=== PATIENT | female | born 1950 | race Two or more races ===

== ENCOUNTER → 2017-07-07 | Outpatient (CLI) | payer OTHER, MEDICARE ==
--- NOTE | 2017-07-07 09:01 | REP ---
Clinical: Chronic knee pain. Technique: AP, lateral, bilateral oblique and sunrise views of the right knee. Findings: Advanced tricompartmental osteoarthritic degenerative changes are appreciated including subchondral sclerosis/heterogeneity, joint space narrowing, osteophyte formation and small calcified posterior loose bodies. No fracture dislocation. No effusion. Impression: Advanced tricompartmental osteoarthritic degenerative changes. Signed by Ismael Nava MD 07/07/2017 08:52 A
[2017-07-07 13:05] LABS: BASO # 0.1 10^3/uL (0.0-0.2); BASO % 1.1 % (0.0-1.0); EOS # 0.3 10^3/uL (0.0-0.50); EOS % 3.7 % (0.0-3.0); IMMATURE GRANULOCYTE % 0.4 % (0-0); LYMPH # 1.6 10^3/uL (1.5-4.5); LYMPH % 20.1 % (24.0-44.0); MEAN CORPUSCULAR HEMOGLOBIN 27.2 pg (27.0-33.0); MEAN CORPUSCULAR HGB CONC 30.6 g/dl (32.0-36.5); MEAN CORPUSCULAR VOLUME 88.9 fl (80.0-96.0); MONO % 12.4 % (0.0-5.0); NEUTROPHILS % 62.3 % (36.0-66.0); PLATELET COUNT, AUTOMATED 377 10^3/uL (150-450); RED CELL DISTRIBUTION WIDTH 14.5 % (11.5-14.5); WHITE BLOOD COUNT 7.9 10^3/uL (4.0-10.0)
[2017-07-07 13:27] LABS: ALBUMIN 3.7 GM/DL (3.2-5.2); ALBUMIN/GLOBULIN RATIO 1.16 (1.00-1.93); ALKALINE PHOSPHATASE 120 U/L (45-117); ALT/SGPT 14 U/L (12-78); ANION GAP 7 MEQ/L (8-16); AST/SGOT 12 U/L (7-37); BILIRUBIN,TOTAL 0.3 MG/DL (0.2-1.0); BLOOD UREA NITROGEN 21 MG/DL (7-18); CALCIUM LEVEL 9.2 MG/DL (8.8-10.2); CARBON DIOXIDE LEVEL 31 MEQ/L (21-32); CHLORIDE LEVEL 104 MEQ/L (98-107); CHOLESTEROL LEVEL 197 MG/DL (<200); CREATININE FOR GFR 0.78 MG/DL (0.55-1.02); FREE T4 0.83 NG/DL (0.76-1.46); GLOMERULAR FILTRATION RATE > 60.0 (>45); GLUCOSE, FASTING 98 MG/DL (80-110); POTASSIUM SERUM 4.7 MEQ/L (3.5-5.1); SODIUM LEVEL 142 MEQ/L (136-145); TOTAL PROTEIN 6.9 GM/DL (6.4-8.2); TRIGLYCERIDES LEVEL 121 MG/DL (<150)
== END ==
LOC: M ADAMS 07:43
PROVIDERS: ATTEND Family Medicine
DX: Z00.00 Encounter for general adult medical examination without abnormal findings (principal); M17.11 Unilateral primary osteoarthritis, right knee

== ENCOUNTER 2018-06-17 08:03 | Inpatient (IN) | payer MEDICARE, MEDICAID, OTHER ==
[2018-06-17 09:00] LABS: BASO % 0.2 % (0.0-1.0); EOS % 0.1 % (0.0-3.0); HEMATOCRIT 30.7 % (36.0-47.0); HEMOGLOBIN 9.6 g/dl (12.0-15.5); IMMATURE GRANULOCYTE % 0.5 % (0-3.0); LYMPH # 0.9 10^3/uL (1.5-4.5); MEAN CORPUSCULAR HEMOGLOBIN 25.3 pg (27.0-33.0); MEAN CORPUSCULAR HGB CONC 31.3 g/dl (32.0-36.5); MEAN CORPUSCULAR VOLUME 80.8 fl (80.0-96.0); MONO # 1.7 10^3/uL (0.0-0.8); MONO % 10.1 % (0.0-5.0); NEUTROPHILS # 14.4 10^3/uL (1.8-7.7); NEUTROPHILS % 84.1 % (36.0-66.0); PLATELET COUNT, AUTOMATED 479 10^3/uL (150-450); RED CELL DISTRIBUTION WIDTH 15.2 % (11.5-14.5); WHITE BLOOD COUNT 17.2 10^3/uL (4.0-10.0)
[2018-06-17 09:21] LABS: LACTIC ACID SEPSIS PROTOCOL 1.7 MMOL/L (0.4-2.0)
[2018-06-17 09:22] LABS: PROTHROMBIN TIME 15.4 SECONDS (12.1-14.4)
[2018-06-17 09:34] LABS: ALBUMIN 2.5 GM/DL (3.2-5.2); ALKALINE PHOSPHATASE 119 U/L (45-117); ALT/SGPT 18 U/L (12-78); ANION GAP 8 MEQ/L (8-16); AST/SGOT 26 U/L (7-37); BILIRUBIN,DIRECT 0.3 MG/DL (0.0-0.2); BILIRUBIN,TOTAL 0.5 MG/DL (0.2-1.0); BLOOD UREA NITROGEN 20 MG/DL (7-18); CALCIUM LEVEL 8.7 MG/DL (8.8-10.2); CARBON DIOXIDE LEVEL 32 MEQ/L (21-32); CHLORIDE LEVEL 99 MEQ/L (98-107); CREATININE FOR GFR 0.88 MG/DL (0.55-1.30); GLOMERULAR FILTRATION RATE > 60.0 (>45); GLUCOSE, FASTING 126 MG/DL (70-100); POTASSIUM SERUM 3.7 MEQ/L (3.5-5.1); SODIUM LEVEL 139 MEQ/L (136-145); TOTAL PROTEIN 6.7 GM/DL (6.4-8.2)
[2018-06-17 09:50] LABS: ERYTHROCYTE SEDIMENTATION RATE 108 mm/hr (0-30)
[2018-06-17] MEDS ORDERED: MECLIZINE 25 MG TABLET PO (11:00)
[2018-06-17] MEDS: VANCOMYCIN HCL 1,000 MG, VIAL MATE ADAPTER 1 EACH in D5W 250 ML IV (11:11)
[2018-06-17] MEDS: ATORVASTATIN 10 MG TAB PO (12:32)
[2018-06-17] MEDS: hydroCHLOROthiazide 12.5 MG CAPSULE PO (12:32)
[2018-06-17] MEDS: CEFTAROLINE FOSAMIL 600 MG in D5W MINI-BAG PLUS 50 ML IV ×2 (12:33→22:43)
[2018-06-17] MEDS: ENOXAPARIN 40 MG/0.4 ML SYRINGE (J1650) SC (12:33)
[2018-06-17] MEDS: PRIMIDONE 250 MG TAB PO (21:53)
[2018-06-17] MEDS: ACETAMINOPHEN 500 MG TAB PO (22:44)
[2018-06-18 05:58] LABS: BASO % 0.3 % (0.0-1.0); EOS # 0.1 10^3/uL (0.0-0.50); EOS % 1.1 % (0.0-3.0); HEMATOCRIT 30.2 % (36.0-47.0); HEMOGLOBIN 9.2 g/dl (12.0-15.5); IMMATURE GRANULOCYTE % 0.6 % (0-3.0); LYMPH # 1.4 10^3/uL (1.5-4.5); LYMPH % 12.2 % (24.0-44.0); MEAN CORPUSCULAR HGB CONC 30.5 g/dl (32.0-36.5); MEAN CORPUSCULAR VOLUME 82.1 fl (80.0-96.0); MONO # 1.2 10^3/uL (0.0-0.8); MONO % 10.5 % (0.0-5.0); NEUTROPHILS # 8.8 10^3/uL (1.8-7.7); NEUTROPHILS % 75.3 % (36.0-66.0); PLATELET COUNT, AUTOMATED 406 10^3/uL (150-450); RED BLOOD COUNT 3.68 10^6/uL (4.00-5.40); RED CELL DISTRIBUTION WIDTH 15.1 % (11.5-14.5); WHITE BLOOD COUNT 11.7 10^3/uL (4.0-10.0)
[2018-06-18 06:15] LABS: ANION GAP 6 MEQ/L (8-16); BLOOD UREA NITROGEN 21 MG/DL (7-18); CARBON DIOXIDE LEVEL 33 MEQ/L (21-32); CHLORIDE LEVEL 100 MEQ/L (98-107); CREATININE FOR GFR 0.95 MG/DL (0.55-1.30); GLOMERULAR FILTRATION RATE > 60.0 (>45); GLUCOSE, FASTING 98 MG/DL (70-100); SODIUM LEVEL 139 MEQ/L (136-145)
[2018-06-18] MEDS: PRIMIDONE 250 MG TAB PO ×2 (08:51→22:17)
[2018-06-18] MEDS: ATORVASTATIN 10 MG TAB PO (08:51)
[2018-06-18] MEDS: ENOXAPARIN 40 MG/0.4 ML SYRINGE (J1650) SC (08:52)
[2018-06-18] MEDS: hydroCHLOROthiazide 12.5 MG CAPSULE PO (08:52)
[2018-06-18] MEDS: SANTYL OINT 30GM TOP (09:00)
[2018-06-18] MEDS: DIAPER RELIEF PASTE (DESITIN) 60GM TOP (09:00)
[2018-06-18] MEDS: CEFTAROLINE FOSAMIL 600 MG in D5W MINI-BAG PLUS 50 ML IV ×2 (10:07→22:18)
[2018-06-18] MEDS: ACETAMINOPHEN 500 MG TAB PO ×3 (10:07→22:17)
[2018-06-18] MEDS ORDERED: ACETAMINOPHEN TAB 650MG DOSE (2X325MG) PO (10:15)
[2018-06-18] MEDS ORDERED: ONDANSETRON 4MG/2ML VIAL (J2405) IV (10:15)
[2018-06-18] MEDS: FLUBLOK(EGG FREE)(QUAD)INFLUENZA VACC 0.5ML SYRINGE (90682)18YRS&OLDER IM (12:35)
[2018-06-19 05:56] LABS: BASO # 0.1 10^3/uL (0.0-0.2); BASO % 0.7 % (0.0-1.0); EOS # 0.4 10^3/uL (0.0-0.50); HEMATOCRIT 30.7 % (36.0-47.0); HEMOGLOBIN 9.4 g/dl (12.0-15.5); IMMATURE GRANULOCYTE % 0.5 % (0-3.0); LYMPH # 0.9 10^3/uL (1.5-4.5); LYMPH % 10.5 % (24.0-44.0); MEAN CORPUSCULAR HEMOGLOBIN 24.9 pg (27.0-33.0); MEAN CORPUSCULAR HGB CONC 30.6 g/dl (32.0-36.5); MEAN CORPUSCULAR VOLUME 81.4 fl (80.0-96.0); MONO # 0.9 10^3/uL (0.0-0.8); MONO % 9.9 % (0.0-5.0); NEUTROPHILS # 6.5 10^3/uL (1.8-7.7); NEUTROPHILS % 74.4 % (36.0-66.0); PLATELET COUNT, AUTOMATED 441 10^3/uL (150-450); RED BLOOD COUNT 3.77 10^6/uL (4.00-5.40); RED CELL DISTRIBUTION WIDTH 15.2 % (11.5-14.5); WHITE BLOOD COUNT 8.7 10^3/uL (4.0-10.0)
[2018-06-19 05:58] LABS: RETIC HEMOGLOBIN EQUIVALENT 24.7 pg (24-36); RETICULOCYTE # 44.9 10^9/L (17-77); RETICULOCYTE % 1.2 % (0.5-1.5)
[2018-06-19 06:19] LABS: FERRITIN 53 NG/ML (8-252); IRON (FE) 18 UG/DL (50-170); PERCENT SATURATION 8.1 % (13.2-45.0); TOTAL IRON BINDING CAPACITY 222 UG/DL (250-450)
[2018-06-19 06:25] LABS: ANION GAP 7 MEQ/L (8-16); BLOOD UREA NITROGEN 22 MG/DL (7-18); CALCIUM LEVEL 8.4 MG/DL (8.8-10.2); CARBON DIOXIDE LEVEL 33 MEQ/L (21-32); CHLORIDE LEVEL 100 MEQ/L (98-107); CREATININE FOR GFR 0.89 MG/DL (0.55-1.30); GLOMERULAR FILTRATION RATE > 60.0 (>45); GLUCOSE, FASTING 94 MG/DL (70-100); POTASSIUM SERUM 2.9 MEQ/L (3.5-5.1); SODIUM LEVEL 140 MEQ/L (136-145)
[2018-06-19] MEDS: POTASSIUM CHLORIDE 10 MEQ SR TABLET PO ×4 (06:56→21:48)
[2018-06-19] MEDS: ATORVASTATIN 10 MG TAB PO (08:00)
[2018-06-19] MEDS: PRIMIDONE 250 MG TAB PO ×2 (08:00→20:25)
[2018-06-19] MEDS: ENOXAPARIN 40 MG/0.4 ML SYRINGE (J1650) SC (08:00)
[2018-06-19] MEDS: hydroCHLOROthiazide 12.5 MG CAPSULE PO (08:00)
[2018-06-19] MEDS: SANTYL OINT 30GM TOP (09:17)
[2018-06-19] MEDS: ACETAMINOPHEN 500 MG TAB PO ×2 (09:17→18:06)
[2018-06-19] MEDS: DIAPER RELIEF PASTE (DESITIN) 60GM TOP (09:17)
[2018-06-19] MEDS: CEFTAROLINE FOSAMIL 600 MG in D5W MINI-BAG PLUS 50 ML IV (10:46)
[2018-06-19 10:56] LABS: VITAMIN B12 LEVEL 401 PG/ML (247-911)
[2018-06-19 17:26] LABS: POTASSIUM SERUM 3.1 MEQ/L (3.5-5.1)
[2018-06-19] MEDS: VANCOMYCIN HCL 1,000 MG, VIAL MATE ADAPTER 1 EACH in D5W 250 ML IV ×2 (20:25→21:47)
[2018-06-20] MEDS: VANCOMYCIN HCL 1,000 MG, VIAL MATE ADAPTER 1 EACH in D5W 250 ML IV ×2 (00:58→09:51)
[2018-06-20 05:47] LABS: BASO # 0.1 10^3/uL (0.0-0.2); BASO % 0.5 % (0.0-1.0); EOS # 0.4 10^3/uL (0.0-0.50); EOS % 4.1 % (0.0-3.0); HEMATOCRIT 30.9 % (36.0-47.0); HEMOGLOBIN 9.3 g/dl (12.0-15.5); IMMATURE GRANULOCYTE % 0.5 % (0-3.0); LYMPH # 0.6 10^3/uL (1.5-4.5); LYMPH % 6.1 % (24.0-44.0); MEAN CORPUSCULAR HEMOGLOBIN 24.7 pg (27.0-33.0); MEAN CORPUSCULAR HGB CONC 30.1 g/dl (32.0-36.5); MEAN CORPUSCULAR VOLUME 82.2 fl (80.0-96.0); MONO # 0.7 10^3/uL (0.0-0.8); MONO % 6.7 % (0.0-5.0); NEUTROPHILS # 7.9 10^3/uL (1.8-7.7); NEUTROPHILS % 82.1 % (36.0-66.0); PLATELET COUNT, AUTOMATED 438 10^3/uL (150-450); RED BLOOD COUNT 3.76 10^6/uL (4.00-5.40); RED CELL DISTRIBUTION WIDTH 15.3 % (11.5-14.5); WHITE BLOOD COUNT 9.7 10^3/uL (4.0-10.0)
[2018-06-20 06:07] LABS: ANION GAP 6 MEQ/L (8-16); BLOOD UREA NITROGEN 16 MG/DL (7-18); CALCIUM LEVEL 8.5 MG/DL (8.8-10.2); CARBON DIOXIDE LEVEL 31 MEQ/L (21-32); CHLORIDE LEVEL 101 MEQ/L (98-107); CREATININE FOR GFR 0.83 MG/DL (0.55-1.30); GLOMERULAR FILTRATION RATE > 60.0 (>45); GLUCOSE, FASTING 96 MG/DL (70-100); POTASSIUM SERUM 3.9 MEQ/L (3.5-5.1); SODIUM LEVEL 138 MEQ/L (136-145)
[2018-06-20] MEDS ORDERED: SENOKOT S TAB PO (09:00)
[2018-06-20] MEDS ORDERED: DOCUSATE SODIUM 100 MG CAP PO (09:00)
[2018-06-20] MEDS: ENOXAPARIN 40 MG/0.4 ML SYRINGE (J1650) SC (09:52)
[2018-06-20] MEDS: ATORVASTATIN 10 MG TAB PO (09:52)
[2018-06-20] MEDS: FERROUS SULFATE 325MG TAB PO (09:52)
[2018-06-20] MEDS: PRIMIDONE 250 MG TAB PO ×2 (09:52→21:38)
[2018-06-20] MEDS: DIAPER RELIEF PASTE (DESITIN) 60GM TOP (09:53)
[2018-06-20] MEDS: SANTYL OINT 30GM TOP (09:53)
[2018-06-20] MEDS: SENOKOT S TAB PO ×2 (14:40→21:38)
[2018-06-20 16:18] LABS: VANCOMYCIN LEVEL TROUGH 28.7 UG/ML (10.0-20.0)
[2018-06-20] MEDS ORDERED: LACTOBACILLUS ACIDOPHILUS CAP (BACID) PO (18:00)
[2018-06-20] MEDS: LACTOBACILLUS ACIDOPHILUS CAP (BACID) PO ×2 (18:13→21:38)
[2018-06-20] MEDS: PIPERACILLIN/TAZOBACTAM SOD 3.375 GM in D5W MINI-BAG PLUS 50 ML IV (18:13)
[2018-06-20] MEDS: LACTIC ACID 12% LOTION 225 GM BTL TOP (21:39)
[2018-06-20] MEDS: IRBESARTAN 150 MG TAB PO (21:39)
[2018-06-21] MEDS: PIPERACILLIN/TAZOBACTAM SOD 3.375 GM in D5W MINI-BAG PLUS 50 ML IV ×3 (01:39→17:36)
[2018-06-21 05:59] LABS: BASO % 0.4 % (0.0-1.0); EOS # 0.5 10^3/uL (0.0-0.50); HEMATOCRIT 29.3 % (36.0-47.0); HEMOGLOBIN 8.8 g/dl (12.0-15.5); IMMATURE GRANULOCYTE % 0.5 % (0-3.0); LYMPH # 1.1 10^3/uL (1.5-4.5); LYMPH % 14.5 % (24.0-44.0); MEAN CORPUSCULAR HEMOGLOBIN 24.7 pg (27.0-33.0); MEAN CORPUSCULAR VOLUME 82.3 fl (80.0-96.0); MONO % 13.3 % (0.0-5.0); NEUTROPHILS % 65.3 % (36.0-66.0); PLATELET COUNT, AUTOMATED 412 10^3/uL (150-450); RED BLOOD COUNT 3.56 10^6/uL (4.00-5.40); RED CELL DISTRIBUTION WIDTH 15.5 % (11.5-14.5); WHITE BLOOD COUNT 7.7 10^3/uL (4.0-10.0)
[2018-06-21 06:19] LABS: ANION GAP 5 MEQ/L (8-16); BLOOD UREA NITROGEN 19 MG/DL (7-18); CARBON DIOXIDE LEVEL 30 MEQ/L (21-32); CHLORIDE LEVEL 103 MEQ/L (98-107); CREATININE FOR GFR 0.93 MG/DL (0.55-1.30); GLOMERULAR FILTRATION RATE > 60.0 (>45); GLUCOSE, FASTING 95 MG/DL (70-100); MAGNESIUM LEVEL 1.9 MG/DL (1.8-2.4); POTASSIUM SERUM 3.9 MEQ/L (3.5-5.1); SODIUM LEVEL 138 MEQ/L (136-145)
[2018-06-21] MEDS: LACTOBACILLUS ACIDOPHILUS CAP (BACID) PO ×3 (08:37→20:40)
[2018-06-21] MEDS: ATORVASTATIN 10 MG TAB PO (08:37)
[2018-06-21] MEDS: SENOKOT S TAB PO ×3 (08:37→20:40)
[2018-06-21] MEDS: PRIMIDONE 250 MG TAB PO ×2 (08:37→20:40)
[2018-06-21] MEDS: FERROUS SULFATE 325MG TAB PO (08:37)
[2018-06-21] MEDS: IRBESARTAN 150 MG TAB PO ×2 (08:43→20:40)
[2018-06-21] MEDS: SANTYL OINT 30GM TOP (08:44)
[2018-06-21] MEDS: ENOXAPARIN 40 MG/0.4 ML SYRINGE (J1650) SC (08:44)
[2018-06-21] MEDS: DIAPER RELIEF PASTE (DESITIN) 60GM TOP (08:45)
[2018-06-21] MEDS: LACTIC ACID 12% LOTION 225 GM BTL TOP ×2 (08:54→20:40)
[2018-06-21] MEDS ORDERED: FLEET ENEMA PR (17:30)
[2018-06-21] MEDS: MIRALAX *UNIT DOSE* 17GM PACKET PO (18:24)
[2018-06-21] MEDS: BISACODYL 10 MG SUPP PR (18:24)
[2018-06-21] MEDS: ACETAMINOPHEN 500 MG TAB PO (20:41)
[2018-06-22 06:07] LABS: BASO % 0.5 % (0.0-1.0); EOS # 0.7 10^3/uL (0.0-0.50); EOS % 8.2 % (0.0-3.0); HEMATOCRIT 30.4 % (36.0-47.0); HEMOGLOBIN 9.3 g/dl (12.0-15.5); IMMATURE GRANULOCYTE % 0.6 % (0-3.0); LYMPH # 1.6 10^3/uL (1.5-4.5); LYMPH % 19.1 % (24.0-44.0); MEAN CORPUSCULAR HEMOGLOBIN 24.9 pg (27.0-33.0); MEAN CORPUSCULAR HGB CONC 30.6 g/dl (32.0-36.5); MEAN CORPUSCULAR VOLUME 81.3 fl (80.0-96.0); MONO # 0.9 10^3/uL (0.0-0.8); MONO % 10.9 % (0.0-5.0); NEUTROPHILS # 4.9 10^3/uL (1.8-7.7); NEUTROPHILS % 60.7 % (36.0-66.0); PLATELET COUNT, AUTOMATED 441 10^3/uL (150-450); RED BLOOD COUNT 3.74 10^6/uL (4.00-5.40); RED CELL DISTRIBUTION WIDTH 15.6 % (11.5-14.5); WHITE BLOOD COUNT 8.1 10^3/uL (4.0-10.0)
[2018-06-22 06:33] LABS: ANION GAP 6 MEQ/L (8-16); BLOOD UREA NITROGEN 17 MG/DL (7-18); CALCIUM LEVEL 7.9 MG/DL (8.8-10.2); CARBON DIOXIDE LEVEL 30 MEQ/L (21-32); CHLORIDE LEVEL 104 MEQ/L (98-107); CREATININE FOR GFR 0.92 MG/DL (0.55-1.30); GLOMERULAR FILTRATION RATE > 60.0 (>45); GLUCOSE, FASTING 94 MG/DL (70-100); POTASSIUM SERUM 3.7 MEQ/L (3.5-5.1); SODIUM LEVEL 140 MEQ/L (136-145)
[2018-06-22] MEDS: PRIMIDONE 250 MG TAB PO (08:23)
[2018-06-22] MEDS: LACTOBACILLUS ACIDOPHILUS CAP (BACID) PO ×3 (08:23→20:52)
[2018-06-22] MEDS: MIRALAX *UNIT DOSE* 17GM PACKET PO (08:23)
[2018-06-22] MEDS: IRBESARTAN 150 MG TAB PO ×2 (08:24→20:52)
[2018-06-22] MEDS: ATORVASTATIN 10 MG TAB PO (08:24)
[2018-06-22] MEDS: ENOXAPARIN 40 MG/0.4 ML SYRINGE (J1650) SC (08:24)
[2018-06-22] MEDS: BISACODYL 10 MG SUPP PR (08:24)
[2018-06-22] MEDS: SENOKOT S TAB PO ×3 (08:24→20:52)
[2018-06-22] MEDS: LACTIC ACID 12% LOTION 225 GM BTL TOP ×2 (08:25→20:53)
[2018-06-22] MEDS: DIAPER RELIEF PASTE (DESITIN) 60GM TOP (08:25)
[2018-06-22] MEDS: PIPERACILLIN/TAZOBACTAM SOD 3.375 GM in D5W MINI-BAG PLUS 50 ML IV ×3 (08:25→17:01)
[2018-06-22] MEDS: SANTYL OINT 30GM TOP (08:25)
[2018-06-22] MEDS ORDERED: IRON SUCROSE 200 MG in NS 100 ML IV (11:00)
[2018-06-22] MEDS: IRON SUCROSE 200 MG in NS 100 ML OVER 1 HR IV (12:24)
[2018-06-22] MEDS: ACETAMINOPHEN 500 MG TAB PO (15:21)
[2018-06-22] MEDS: PRIMIDONE 125MG PER 1/2 TABLET PO (20:52)
[2018-06-23] MEDS: PIPERACILLIN/TAZOBACTAM SOD 3.375 GM in D5W MINI-BAG PLUS 50 ML IV ×3 (00:45→17:19)
[2018-06-23 06:10] LABS: BASO % 0.4 % (0.0-1.0); EOS # 0.8 10^3/uL (0.0-0.50); EOS % 10.2 % (0.0-3.0); LYMPH # 1.6 10^3/uL (1.5-4.5); LYMPH % 21.7 % (24.0-44.0); MEAN CORPUSCULAR HEMOGLOBIN 24.9 pg (27.0-33.0); MEAN CORPUSCULAR VOLUME 83.1 fl (80.0-96.0); MONO # 0.7 10^3/uL (0.0-0.8); MONO % 9.8 % (0.0-5.0); NEUTROPHILS # 4.2 10^3/uL (1.8-7.7); NEUTROPHILS % 56.9 % (36.0-66.0); PLATELET COUNT, AUTOMATED 428 10^3/uL (150-450); RED BLOOD COUNT 3.61 10^6/uL (4.00-5.40); RED CELL DISTRIBUTION WIDTH 15.6 % (11.5-14.5); WHITE BLOOD COUNT 7.3 10^3/uL (4.0-10.0)
[2018-06-23 06:30] LABS: ANION GAP 7 MEQ/L (8-16); BLOOD UREA NITROGEN 14 MG/DL (7-18); C REACTIVE PROTEIN QUANTITATIV 6.06 MG/DL (0.00-0.30); CALCIUM LEVEL 8.2 MG/DL (8.8-10.2); CARBON DIOXIDE LEVEL 30 MEQ/L (21-32); CHLORIDE LEVEL 105 MEQ/L (98-107); CREATININE FOR GFR 0.84 MG/DL (0.55-1.30); GLOMERULAR FILTRATION RATE > 60.0 (>45); GLUCOSE, FASTING 95 MG/DL (70-100); POTASSIUM SERUM 3.4 MEQ/L (3.5-5.1); SODIUM LEVEL 142 MEQ/L (136-145)
[2018-06-23] MEDS: MIRALAX *UNIT DOSE* 17GM PACKET PO (09:00)
[2018-06-23] MEDS: BISACODYL 10 MG SUPP PR (09:00)
[2018-06-23] MEDS: SENOKOT S TAB PO ×3 (09:00→20:08)
[2018-06-23] MEDS: IRBESARTAN 150 MG TAB PO (09:00)
[2018-06-23] MEDS: ATORVASTATIN 10 MG TAB PO (09:58)
[2018-06-23] MEDS: LACTOBACILLUS ACIDOPHILUS CAP (BACID) PO ×3 (09:58→20:07)
[2018-06-23] MEDS: ENOXAPARIN 40 MG/0.4 ML SYRINGE (J1650) SC (09:59)
[2018-06-23] MEDS: POTASSIUM CHLORIDE 10 MEQ SR TABLET PO (09:59)
[2018-06-23] MEDS: DIAPER RELIEF PASTE (DESITIN) 60GM TOP (10:00)
[2018-06-23] MEDS: SANTYL OINT 30GM TOP (10:00)
[2018-06-23] MEDS: LACTIC ACID 12% LOTION 225 GM BTL TOP ×2 (10:00→20:08)
[2018-06-23] MEDS: PRIMIDONE 250 MG TAB PO (10:02)
[2018-06-23] MEDS: PILL CRUSHER/CUTTER 1 EACH XX (20:07)
[2018-06-23] MEDS: PRIMIDONE 125MG PER 1/2 TABLET PO (20:07)
[2018-06-24] MEDS: PIPERACILLIN/TAZOBACTAM SOD 3.375 GM in D5W MINI-BAG PLUS 50 ML IV ×2 (00:31→10:27)
[2018-06-24 06:30] LABS: BASO # 0.1 10^3/uL (0.0-0.2); BASO % 0.7 % (0.0-1.0); EOS # 0.9 10^3/uL (0.0-0.50); EOS % 10.9 % (0.0-3.0); HEMATOCRIT 29.9 % (36.0-47.0); HEMOGLOBIN 8.9 g/dl (12.0-15.5); IMMATURE GRANULOCYTE % 0.4 % (0-3.0); LYMPH # 1.8 10^3/uL (1.5-4.5); LYMPH % 21.4 % (24.0-44.0); MEAN CORPUSCULAR HEMOGLOBIN 24.5 pg (27.0-33.0); MEAN CORPUSCULAR HGB CONC 29.8 g/dl (32.0-36.5); MEAN CORPUSCULAR VOLUME 82.4 fl (80.0-96.0); MONO # 0.8 10^3/uL (0.0-0.8); NEUTROPHILS # 4.6 10^3/uL (1.8-7.7); NEUTROPHILS % 56.6 % (36.0-66.0); PLATELET COUNT, AUTOMATED 468 10^3/uL (150-450); RED BLOOD COUNT 3.63 10^6/uL (4.00-5.40); RED CELL DISTRIBUTION WIDTH 15.9 % (11.5-14.5); WHITE BLOOD COUNT 8.2 10^3/uL (4.0-10.0)
[2018-06-24 06:56] LABS: ANION GAP 7 MEQ/L (8-16); BLOOD UREA NITROGEN 14 MG/DL (7-18); C REACTIVE PROTEIN QUANTITATIV 3.74 MG/DL (0.00-0.30); CALCIUM LEVEL 8.2 MG/DL (8.8-10.2); CARBON DIOXIDE LEVEL 29 MEQ/L (21-32); CHLORIDE LEVEL 106 MEQ/L (98-107); CREATININE FOR GFR 0.91 MG/DL (0.55-1.30); GLOMERULAR FILTRATION RATE > 60.0 (>45); GLUCOSE, FASTING 89 MG/DL (70-100); POTASSIUM SERUM 3.5 MEQ/L (3.5-5.1); SODIUM LEVEL 142 MEQ/L (136-145)
[2018-06-24] MEDS: MIRALAX *UNIT DOSE* 17GM PACKET PO (09:00)
[2018-06-24] MEDS: BISACODYL 10 MG SUPP PR (09:00)
[2018-06-24] MEDS: SENOKOT S TAB PO ×3 (09:00→20:44)
[2018-06-24] MEDS: ENOXAPARIN 40 MG/0.4 ML SYRINGE (J1650) SC (10:27)
[2018-06-24] MEDS: LOSARTAN 25 MG TAB PO (10:30)
[2018-06-24] MEDS: LACTOBACILLUS ACIDOPHILUS CAP (BACID) PO ×3 (10:30→21:00)
[2018-06-24] MEDS: ATORVASTATIN 10 MG TAB PO (10:31)
[2018-06-24] MEDS: SANTYL OINT 30GM TOP (10:32)
[2018-06-24] MEDS: LACTIC ACID 12% LOTION 225 GM BTL TOP ×2 (10:33→21:00)
[2018-06-24] MEDS: DIAPER RELIEF PASTE (DESITIN) 60GM TOP (10:34)
[2018-06-24] MEDS: PRIMIDONE 250 MG TAB PO (11:41)
[2018-06-24] MEDS: ACETAMINOPHEN 500 MG TAB PO (12:41)
[2018-06-24] MEDS: PRIMIDONE 125MG PER 1/2 TABLET PO (21:00)
[2018-06-24] MEDS: AUGMENTIN 875 MG TAB PO (21:00)
[2018-06-25 06:13] LABS: C REACTIVE PROTEIN QUANTITATIV 2.57 MG/DL (0.00-0.30)
[2018-06-25] MEDS: BISACODYL 10 MG SUPP PR (09:00)
[2018-06-25] MEDS: MIRALAX *UNIT DOSE* 17GM PACKET PO (09:00)
[2018-06-25] MEDS: SENOKOT S TAB PO (09:00)
[2018-06-25] MEDS: LACTOBACILLUS ACIDOPHILUS CAP (BACID) PO ×3 (09:08→20:56)
[2018-06-25] MEDS: ATORVASTATIN 10 MG TAB PO (09:08)
[2018-06-25] MEDS: PRIMIDONE 250 MG TAB PO (09:08)
[2018-06-25] MEDS: AUGMENTIN 875 MG TAB PO ×2 (09:08→20:56)
[2018-06-25] MEDS: LOSARTAN 25 MG TAB PO (09:09)
[2018-06-25] MEDS: ENOXAPARIN 40 MG/0.4 ML SYRINGE (J1650) SC (09:10)
[2018-06-25] MEDS: LACTIC ACID 12% LOTION 225 GM BTL TOP ×2 (09:11→20:56)
[2018-06-25] MEDS: SANTYL OINT 30GM TOP (09:11)
[2018-06-25] MEDS: DIAPER RELIEF PASTE (DESITIN) 60GM TOP (09:11)
[2018-06-25] MEDS: ACETAMINOPHEN 500 MG TAB PO (09:33)
[2018-06-25] MEDS: PRIMIDONE 125MG PER 1/2 TABLET PO (20:56)
[2018-06-26 06:30] LABS: C REACTIVE PROTEIN QUANTITATIV 1.53 MG/DL (0.00-0.30)
[2018-06-26] MEDS: LACTOBACILLUS ACIDOPHILUS CAP (BACID) PO ×3 (08:33→21:12)
[2018-06-26] MEDS: AUGMENTIN 875 MG TAB PO ×2 (08:33→21:12)
[2018-06-26] MEDS: LOSARTAN 25 MG TAB PO (08:34)
[2018-06-26] MEDS: ATORVASTATIN 10 MG TAB PO (08:34)
[2018-06-26] MEDS: ENOXAPARIN 40 MG/0.4 ML SYRINGE (J1650) SC (08:35)
[2018-06-26] MEDS: PRIMIDONE 250 MG TAB PO (09:23)
[2018-06-26] MEDS: LACTIC ACID 12% LOTION 225 GM BTL TOP ×2 (12:38→21:13)
[2018-06-26] MEDS: SANTYL OINT 30GM TOP (12:39)
[2018-06-26] MEDS: DIAPER RELIEF PASTE (DESITIN) 60GM TOP (12:39)
[2018-06-26] MEDS: ACETAMINOPHEN 500 MG TAB PO (12:56)
[2018-06-26] MEDS: PRIMIDONE 125MG PER 1/2 TABLET PO (21:12)
[2018-06-27] MEDS: SENOKOT S TAB PO ×3 (09:00→20:40)
[2018-06-27] MEDS: BISACODYL 10 MG SUPP PR (09:00)
[2018-06-27] MEDS: MIRALAX *UNIT DOSE* 17GM PACKET PO (09:00)
[2018-06-27] MEDS: ATORVASTATIN 10 MG TAB PO (09:37)
[2018-06-27] MEDS: LACTOBACILLUS ACIDOPHILUS CAP (BACID) PO ×3 (09:40→20:40)
[2018-06-27] MEDS: AUGMENTIN 875 MG TAB PO ×2 (09:40→20:40)
[2018-06-27] MEDS: LOSARTAN 25 MG TAB PO (09:40)
[2018-06-27] MEDS: DIAPER RELIEF PASTE (DESITIN) 60GM TOP (09:42)
[2018-06-27] MEDS: LACTIC ACID 12% LOTION 225 GM BTL TOP ×2 (09:42→20:41)
[2018-06-27] MEDS: SANTYL OINT 30GM TOP (09:43)
[2018-06-27] MEDS: ENOXAPARIN 40 MG/0.4 ML SYRINGE (J1650) SC (09:44)
[2018-06-27] MEDS: PRIMIDONE 250 MG TAB PO (09:49)
[2018-06-27] MEDS: ACETAMINOPHEN 500 MG TAB PO (13:03)
[2018-06-27] MEDS: PRIMIDONE 125MG PER 1/2 TABLET PO (20:40)
[2018-06-28] MEDS: LACTOBACILLUS ACIDOPHILUS CAP (BACID) PO ×3 (08:23→20:17)
[2018-06-28] MEDS: AUGMENTIN 875 MG TAB PO ×2 (08:23→20:17)
[2018-06-28] MEDS: ENOXAPARIN 40 MG/0.4 ML SYRINGE (J1650) SC (08:25)
[2018-06-28] MEDS: PRIMIDONE 250 MG TAB PO (08:25)
[2018-06-28] MEDS: ATORVASTATIN 10 MG TAB PO (08:25)
[2018-06-28] MEDS: MIRALAX *UNIT DOSE* 17GM PACKET PO (08:25)
[2018-06-28] MEDS: LOSARTAN 25 MG TAB PO (08:25)
[2018-06-28] MEDS: DIAPER RELIEF PASTE (DESITIN) 60GM TOP (08:26)
[2018-06-28] MEDS: SENOKOT S TAB PO ×3 (08:26→20:17)
[2018-06-28] MEDS: BISACODYL 10 MG SUPP PR (08:26)
[2018-06-28] MEDS: SANTYL OINT 30GM TOP (08:27)
[2018-06-28] MEDS: LACTIC ACID 12% LOTION 225 GM BTL TOP ×2 (08:27→20:18)
[2018-06-28] MEDS: ACETAMINOPHEN 500 MG TAB PO (15:57)
[2018-06-28] MEDS: PRIMIDONE 125MG PER 1/2 TABLET PO (20:17)
[2018-06-29] MEDS: LACTIC ACID 12% LOTION 225 GM BTL TOP (09:00)
[2018-06-29] MEDS: DIAPER RELIEF PASTE (DESITIN) 60GM TOP (09:00)
[2018-06-29] MEDS: AUGMENTIN 875 MG TAB PO (09:23)
[2018-06-29] MEDS: MIRALAX *UNIT DOSE* 17GM PACKET PO (09:23)
[2018-06-29] MEDS: LACTOBACILLUS ACIDOPHILUS CAP (BACID) PO (09:23)
[2018-06-29] MEDS: LOSARTAN 25 MG TAB PO (09:23)
[2018-06-29] MEDS: ATORVASTATIN 10 MG TAB PO (09:23)
[2018-06-29] MEDS: ENOXAPARIN 40 MG/0.4 ML SYRINGE (J1650) SC (09:23)
[2018-06-29] MEDS: SENOKOT S TAB PO (09:23)
[2018-06-29] MEDS: BISACODYL 10 MG SUPP PR (09:24)
[2018-06-29] MEDS: SANTYL OINT 30GM TOP (09:24)
[2018-06-29] MEDS: PRIMIDONE 250 MG TAB PO (09:26)
== END 2018-06-29 12:29 | disposition home health service (06) | DRG 603 ==
LOC: M ED 08:03 → M ED INP 10:04 → M MSPAV 12:16
DX: L03.115 Cellulitis of right lower limb (principal); R78.81 Bacteremia; Z68.43 Body mass index [BMI] 50.0-59.9, adult; L97.419 Non-pressure chronic ulcer of right heel and midfoot with unspecified severity; G40.409 Other generalized epilepsy and epileptic syndromes, not intractable, without status epilepticus; D63.8 Anemia in other chronic diseases classified elsewhere; E87.6 Hypokalemia; K59.00 Constipation, unspecified; I10 Essential (primary) hypertension; I87.8 Other specified disorders of veins; E78.5 Hyperlipidemia, unspecified; M19.90 Unspecified osteoarthritis, unspecified site; E02 Subclinical iodine-deficiency hypothyroidism; E66.01 Morbid (severe) obesity due to excess calories; E78.00 Pure hypercholesterolemia, unspecified; Z79.899 Other long term (current) drug therapy; B95.61 Methicillin susceptible Staphylococcus aureus infection as the cause of diseases classified elsewhere; B95.0 Streptococcus, group A, as the cause of diseases classified elsewhere

== ENCOUNTER 2019-01-01 05:44 | Emergency (ER) | payer MEDICARE, MEDICAID ==
[~2019-01-01] VITALS: Ht 157.5 cm; Wt 130.5 kg
[~2019-01-01 05:44] MED LIST: ATOR1TAB19 PO; CALC-196 PO; COZA1TAB PO; DICL25TA PO; DICL75TA PO; HYDR12.55 PO; HYDR12CA PO; MAPA500T2 PO; MECL-68 PO; MECL1CHW PO; PRIM250T8 PO
[2019-01-01 06:11] LABS: BASO # 0.1 10^3/uL (0.0-0.2); BASO % 0.8 % (0.0-1.0); EOS # 0.2 10^3/uL (0.0-0.50); EOS % 2.9 % (0.0-3.0); HEMATOCRIT 33.4 % (36.0-47.0); HEMOGLOBIN 10.2 g/dl (12.0-15.5); LYMPH # 1.5 10^3/uL (1.5-4.5); LYMPH % 17.2 % (24.0-44.0); MEAN CORPUSCULAR HEMOGLOBIN 25.7 pg (27.0-33.0); MEAN CORPUSCULAR HGB CONC 30.5 g/dl (32.0-36.5); MEAN CORPUSCULAR VOLUME 84.1 fl (80.0-96.0); MONO # 0.8 10^3/uL (0.0-0.8); MONO % 9.8 % (0.0-5.0); NEUTROPHILS # 5.8 10^3/uL (1.8-7.7); NEUTROPHILS % 68.9 % (36.0-66.0); PLATELET COUNT, AUTOMATED 374 10^3/uL (150-450); RED BLOOD COUNT 3.97 10^6/uL (4.00-5.40); WHITE BLOOD COUNT 8.4 10^3/uL (4.0-10.0)
[2019-01-01 06:21] LABS: INR 0.99; PROTHROMBIN TIME 13.2 SECONDS (12.1-14.4)
[2019-01-01 06:22] LABS: PARTIAL THROMBOPLASTIN TIME 34.3 SECONDS (25.4-37.6)
[2019-01-01 06:54] LABS: ALBUMIN 3.4 GM/DL (3.2-5.2); ALT/SGPT 14 U/L (12-78); BILIRUBIN,DIRECT < 0.1 MG/DL (0.0-0.2); BILIRUBIN,TOTAL 0.2 MG/DL (0.2-1.0); BLOOD UREA NITROGEN 23 MG/DL (7-18); CALCIUM LEVEL 8.3 MG/DL (8.8-10.2); CARBON DIOXIDE LEVEL 29 MEQ/L (21-32); CHLORIDE LEVEL 107 MEQ/L (98-107); CPK CREATINE PHOSPHOKINASE 132 U/L (26-192); CREATININE FOR GFR 0.96 MG/DL (0.55-1.30); FREE T4 0.85 NG/DL (0.76-1.46); GLOMERULAR FILTRATION RATE > 60.0 (>45); GLUCOSE, FASTING 104 MG/DL (70-100); LIPASE 201 U/L (73-393); MB/CK RELATIVE INDEX 1.06 (< OR =4); POTASSIUM SERUM 4.2 MEQ/L (3.5-5.1); SODIUM LEVEL 142 MEQ/L (136-145); TOTAL PROTEIN 7.3 GM/DL (6.4-8.2); TROPONIN I < 0.02 NG/ML (< 0.10)
[2019-01-01] MEDS ORDERED: ISOVUE-370 76% 100ML VIAL (Q9967) As Ordered ONE (07:10)
--- NOTE | 2019-01-01 07:45 | REPVR ---
EXAM: CT Angiography Chest With Contrast EXAM DATE/TIME: 01/01/2019 7:05 AM CLINICAL HISTORY: 68 years old, female; Chest pain; Type not specified; Additional info: Cp TECHNIQUE: Imaging protocol: Axial computed tomographic angiography images of the chest with intravenous contrast using CT angiography protocol. Coronal and sagittal reformatted images were created and reviewed. 3D rendering: MIP reconstructed images were created and reviewed. Radiation optimization: All CT scans at this facility use at least one of these dose optimization techniques: automated exposure control; mA and/or kV adjustment per patient size (includes targeted exams where dose is matched to clinical indication); or iterative reconstruction. Contrast material: ISO; Contrast volume: 75 ml; Contrast route: AC; COMPARISON: CR Chest, 2 view PA, Lat 01/01/2019 6:34 AM FINDINGS: Pulmonary arteries: Normal. No pulmonary emboli. Aorta: Normal. No aortic aneurysm. No aortic dissection. Lungs: Mild diffuse bilateral ground glass densities likely representing edema versus inflammation. No focal consolidation. Pleural space: Normal. No pneumothorax. No pleural effusion. Heart: Cardiomegaly. Coronary calcifications. Diaphragm: Elevation of the right hemidiaphragm. Stomach and bowel: Large hiatal hernia containing almost all of the stomach. Lymph nodes: Prominent bilateral axillary chain lymph nodes Bones/joints: Degenerative changes. Soft tissues: Unremarkable. Other findings: Bovine arch. IMPRESSION: No evidence of pulmonary embolism. Mild diffuse bilateral ground glass densities likely representing edema versus inflammation. No focal consolidation. Electronically signed by: Rosi Little On 01/01/2019 07:44:46 AM
--- NOTE | 2019-01-01 08:07 | REP ---
Clinical: Acute chest pain . Comparison: None . Technique: PA and lateral. Findings: The mediastinum and cardiac silhouette are normal. The lung temple are clear and without acute consolidation, effusion, or pneumothorax. The skeletal structures are intact and normal. Impression: 1. No acute cardiopulmonary process. Electronically Signed by Ismael Nava MD 01/01/2019 07:59 A
[2019-01-01 09:23] LABS: NT-PRO BNP 129 PG/ML (<125)
[2019-01-01 13:45] LABS: CPK CREATINE PHOSPHOKINASE 139 U/L (26-192); MB/CK RELATIVE INDEX 1.37 (< OR =4); TROPONIN I < 0.02 NG/ML (< 0.10)
[2019-01-01] MEDS ORDERED: ASPI81TA85 PO (14:35)
[2019-01-01 15:00] VITALS: BP 159/75
--- NOTE | 2019-01-01 20:48 | ECGEPIP ---
[facility] - ED Test Date: 2019-01-01 Pat Name: HILDA ALVA Department: Room: - Gender: Female Rejector: brittani : 1950 Requested By: SERENA Novoa Order Number: [id number] Reading MD: Carli De La Rosa Measurements Intervals [place] Rate: 77 P: 62 WV: 171 QRS: 28 QRSD: 89 T: 61 QT: 396 QTc: 449 Interpretive Statements SINUS RHYTHM MODERATE ST DEPRESSION NO PRIOR FOR COMPARISON Electronically Signed on 01-01-2019 20:48:13 EDT by Carli De La Rosa
--- NOTE | 2019-01-01 20:56 | ECGEPIP ---
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
--- NOTE | 2019-01-02 07:39 | ED PDOC ---
Post-Departure Follow-Up dr de la torre faxed formal report of cta chest for fu Kash Tierney MD January 02, 2019 07:39
== END 2019-01-01 15:10 | disposition home or self-care (01) ==
LOC: M ED 05:44
DX: R07.9 Chest pain, unspecified (principal); R06.02 Shortness of breath; I10 Essential (primary) hypertension; E78.5 Hyperlipidemia, unspecified; G40.909 Epilepsy, unspecified, not intractable, without status epilepticus; M19.90 Unspecified osteoarthritis, unspecified site; Z79.899 Other long term (current) drug therapy; Z79.82 Long term (current) use of aspirin
CPT/HCPCS: 36415; 71046; 71275; 80048; 80076; 82550; 82553; 83690; 83880; 84439; 84443; 84484; 85025; 85610; 85730; 93005; 93041; 94760; 99285; Q9967

== ENCOUNTER → 2019-01-27 | Outpatient (CLI) | payer MEDICARE, MEDICAID ==
[~2019-01-27] MED LIST changes: +ASPI81TA85 PO
--- NOTE | 2019-01-27 11:09 | REP ---
Left knee series: Five views. History: Pain in the left knee. Findings: Five views of the left knee demonstrate diffuse osteopenia. There is advanced osteoarthritis affecting the lateral and patellofemoral compartments with joint space narrowing and sclerosis as well as spurring. There is mild medial compartment spurring. No joint effusion is seen. No erosive change is appreciated. Impression: Fairly advanced lateral and patellofemoral compartment osteoarthritis. Diffuse osteopenia. Electronically Signed by Mohan Hopper MD 01/27/2019 11:00 A
== END ==
LOC: M ADAMS 09:15
PROVIDERS: ATTEND Family Medicine
DX: M17.12 Unilateral primary osteoarthritis, left knee (principal); M25.562 Pain in left knee
CPT/HCPCS: 73564; G0463

== ENCOUNTER → 2019-03-18 | Outpatient (CLI) | payer MEDICARE, MEDICAID ==
[~2019-03-18] MED LIST changes: -MECL-68 PO; +MECL1TAB31 PO
--- NOTE | 2019-03-18 10:22 | REPMRS ---
Patient History The patient states she had a clinical breast exam in 07/2018. Patient is postmenopausal and is nulliparous. Family history of unknown cancer at age 50 or over in father. 3D TOMOSYNTHESIS WAS PERFORMED. The [facility] lifetime risk for breast cancer is 6.5%. Digital Woman Screen Mammo: March 18, 2019 - Exam #: [id number] Bilateral CC and MLO view(s) were taken. Technologist: Radha Garcia, Technologist Prior study comparison: June 14, 2009, bilateral screening mammogram, performed at [facility]. FINDINGS: There are scattered fibroglandular densities. There has been no change in the appearance of the mammogram from the prior studies. There is a mild amount of residual fibroglandular tissue which is fairly symmetric. There is no interval development of dominant mass, architectural distortion, or clustered microcalcification suggestive of malignancy. Assessment: BI-RADS/ACR category 1 mammogram. Negative Mammogram. Recommendation Routine screening mammogram in 1 year (for women over age 40). This mammogram was interpreted with the aid of an FDA-approved computer-aided dectection system. Electronically Signed By: Malik García MD 03/18/19 [id number]
--- NOTE | 2019-03-24 14:54 | DEXA ---
AP SPINE L1 - L4 1.450 2.1 3.7 LT FEMUR TOTAL 1.057 0.4 1.7 LT NECK 1.004 -0.2 1.3 RT FEMUR TOTAL 1.030 0.2 1.5 RT NECK 1.942 -0.7 0.8 TOTAL BODY TOTAL OTHER COMMENTS: Normal bone densitometry of the spine and hips. FOLLOW-UP: Recommendation for the next bone density exam: 5 years. JUANJO
== END ==
LOC: M WHC 09:06
PROVIDERS: ATTEND Family Medicine
DX: Z12.31 Encounter for screening mammogram for malignant neoplasm of breast (principal); Z13.820 Encounter for screening for osteoporosis; Z78.0 Asymptomatic menopausal state; Z80.9 Family history of malignant neoplasm, unspecified

== ENCOUNTER 2019-09-02 15:57 | Inpatient (IN) | payer MEDICARE, MEDICAID ==
[2019-09-02] VITALS (8 sets, daily range): BP systolic 150–179; BP diastolic 66–77
[~2019-09-02] VITALS: Ht 152.4 cm; Wt 131.6 kg
[~2019-09-02 15:57] MED LIST changes: -ASPI81TA26 PO; -CALC500T52 PO; -CARV12.5 PO; -LOSA25TA14 PO; -NIFE1TAB62 PO
[2019-09-02] MEDS ORDERED: LOSA25TA14 PO (16:15)
[2019-09-02] MEDS ORDERED: CARV12.5 PO (16:15)
[2019-09-02 16:35] LABS: BASO # 0.1 10^3/uL (0.0-0.2); BASO % 0.8 % (0.0-1.0); EOS # 0.4 10^3/uL (0.0-0.5); EOS % 5.1 % (0.0-3.0); HEMATOCRIT 23.1 % (36.0-47.0); LYMPH # 1.3 10^3/uL (1.5-5.0); LYMPH % 17.6 % (24.0-44.0); MEAN CORPUSCULAR HEMOGLOBIN 16.4 pg (27.0-33.0); MEAN CORPUSCULAR HGB CONC 25.1 g/dl (32.0-36.5); MEAN CORPUSCULAR VOLUME 65.4 fl (80.0-96.0); MONO # 1.2 10^3/uL (0.0-0.8); MONO % 15.5 % (0.0-5.0); NEUTROPHILS # 4.6 10^3/uL (1.5-8.5); NEUTROPHILS % 60.6 % (36.0-66.0); PLATELET COUNT, AUTOMATED 417 10^3/uL (150-450); RED BLOOD COUNT 3.53 10^6/uL (4.00-5.40); WHITE BLOOD COUNT 7.6 10^3/uL (4.0-10.0)
[2019-09-02 16:38] LABS: HEMOGLOBIN 5.8 g/dl (12.0-15.5)
--- NOTE | 2019-09-02 17:03 | REP ---
Portable chest x-ray: Single view. History: Anemia. Comparison study January 01, 2019. Findings: Monitoring electrodes overlie the chest. There is a [id number] hiatal hernia again noted. Heart size is borderline. Pulmonary vasculature is cephalized. No pleural effusion or pulmonary edema seen. No infiltrate noted. Impression: Borderline heart size. Large hiatal hernia. Pulmonary vascular cephalization. Electronically Signed by Mohan Hopper MD 09/02/2019 04:54 P
[2019-09-02] MEDS ORDERED: ASPI81TA26 PO (17:18)
[2019-09-02] MEDS ORDERED: CALC500T52 PO (17:18)
[2019-09-02 17:21] LABS: ALBUMIN 3.4 GM/DL (3.2-5.2); ALT/SGPT 20 U/L (12-78); BILIRUBIN,TOTAL 0.2 MG/DL (0.2-1.0); BLOOD UREA NITROGEN 24 MG/DL (7-18); CALCIUM LEVEL 8.5 MG/DL (8.8-10.2); CARBON DIOXIDE LEVEL 28 MEQ/L (21-32); CHLORIDE LEVEL 107 MEQ/L (98-107); CK-MB VALUE MASS 1.8 NG/ML (<3.6); CPK CREATINE PHOSPHOKINASE 119 U/L (26-192); CREATININE FOR GFR 1.11 MG/DL (0.55-1.30); GLOMERULAR FILTRATION RATE 52.2 (>45); GLUCOSE, FASTING 90 MG/DL (70-100); MB/CK RELATIVE INDEX 1.51 (< OR =4); POTASSIUM SERUM 3.7 MEQ/L (3.5-5.1); SODIUM LEVEL 140 MEQ/L (136-145); TOTAL PROTEIN 7.3 GM/DL (6.4-8.2); TROPONIN I < 0.02 NG/ML (< 0.10)
[2019-09-02 19:38] LABS: FERRITIN 7 NG/ML (8-252); IRON (FE) 14 UG/DL (50-170); PERCENT SATURATION 2.5 % (13.2-45.0); TOTAL IRON BINDING CAPACITY 569 UG/DL (250-450)
--- NOTE | 2019-09-02 20:05 | HPEPDOC ---
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 Maynard and [employer]) with a measured hemoglobin in the 5s. She was subsequently advised to present to the ED. Patient reports that she has had a "couple weak spells" within the past week, that consisted of diminished strength and energy with activity. Sitting and resting palpation symptoms. She reports that she does not always experience t hese spells while active. Patient denies any associated dyspnea, lightheadedness, dizziness, syncope, or falls. She also denies any current or former history of known GI bleeds, hematochezia, melena, hematemesis, coffee ground emesis hemoptysis, or epistaxis. Patient states that she has never had th is type of symptom presentation before and has never previously received any blood transfusions. She denies any recent change in medication regimen, any recent illnesses, any recent significant changes in diet, any recent travel, or any recent sick contacts. Patient's primary care physician is Dr. Wynne, and she follows as outpatient with cardiology (Dr. Maynard).. She verbally confirms that she is a full code. In the ED, patient's measured hemoglobin was 5.8. A type and screen was done, patient signed consent to receive blood products, and to units of packed red blood cells were ordered for transfusion. PAST MEDICAL HISTORY: Essential hypertension Hyperlipidemia Osteoarthritis bilateral knees. Epilepsy, on primidone with last seizure nearly 2000s when she stopped primidone Subclinical hypothyroidism History of right lower extremity chronic ulcers PAST SURGICAL HISTORY: Tonsillectomy Right wrist surgery, post fall and dislocation Colonoscopy, 2016 Cardiac catheterization, 01/25/19 SOCIAL HISTORY: Retired, lives alone with her cat. Formerly employed at [employer]. Denies current or former tobacco product use, alcohol use, or illegal drug use. Father: , [place] with multiorgan system failure following [place], history of heart disease Mother: , metastatic liver cancer. FAMILY HISTORY: Father: , [place] with multiorgan system failure following [place], history of heart disease Mother: , metastatic liver cancer. Father: , [place], multiorgan system failure following [place], diagnosed with Heart Disease Mother: , metastatic liver cancer, Cancer Siblings: alive, stepbrother with [place], sister and stepbrother with no known medical problems Paternal uncle: [place], Heart Disease Maternal aunt: breast cancer, Cancer 2 brother(s) , 1 sister(s) . Mother- liver cancer Step-brother- heart attack, . ALLERGIES: Please see below. REVIEW OF SYSTEMS: CONSTITUTIONAL: Endorses episodes of weakness and diminished strength intermittently with activity over the past week; Denies fever, chills, or night sweats HEENT: Denies recent head trauma, eye pain, diplopia, blurry vision, tinnitus, ear pain, rhinorrhea, sore throat CARDIOVASCULAR:, Denies chest pain, chest pressure, or palpitations. RESPIRATORY:. Denies dyspnea, cough, pleuritic chest pain. GASTROINTESTINAL: Denies abdominal pain, nausea, or vomiting. NEUROLOGICAL: Denies headache, lightheadedness, dizziness, syncope HEMATOLOGIC/LYMPHATIC: Denies easy bleeding or easy bruising HOME MEDICATIONS: Please see below. PHYSICAL EXAMINATION: VITAL SIGNS: Temperature 96.1, pulse 67, respiratory rate 20, blood pressure 164/66, pulse oximetry 98 % on room air. GENERAL APPEARANCE: Obese female resting comfortably sitting upright in bed. Alert and oriented 3. Does not appear to be in acute distress of any kind. Very pale appearing skin. HEENT: Normocephalic, atraumatic. Wearing a hair wig and prescription eyeglasses. Face is pale. Anicteric and noninjected sclera. Conjunctiva pallor. Pale and moist mucous membranes. No pharyngeal exudate. No anterior or posterior cervical, nor supraclavicular, lymphadenopathy. CARDIOVASCULAR: Regular rate and regular rhythm. S1, S2 auscultated. No murmurs or rubs appreciated. Adequate capillary refill. LUNGS: Clear to auscultation bilaterally, anteriorly and posteriorly; with no wheezes, crackles or rhonchi appreciated. Symmetric chest expansion, with no sensory muscle use or retractions on respiration. Speaking in full sentences and breathing on room air. ABDOMEN: Significantly obese, soft, non-tender. Normoactive bowel sounds present. MUSCULOSKELETAL: 5/5 muscle strength testing upper extremities and lower extremities bilaterally. EXTREMITIES: 2+ bilateral lower extremity pitting edema. Bilateral lower extremity stasis dermatitis with active shedding of crusted skin. NEUROLOGICAL: Awake, alert and oriented 3. No focal neurological deficits appreciated. Responding appropriately to questions and commands.. PSYCHIATRIC: Mood and affect appear appropriate. LABORATORY DATA: Please see below. IMAGING: Portable chest x-ray, 09/02/19: Borderline heart size. Large hiatal hernia. Pulmonary vascular cephalization. MICROBIOLOGY: Please see below. ASSESSMENT & PLAN: This is a 69-year-old obese female with history of hypertension, h yperlipidemia, epilepsy on primidone and subclinical hypothyroidism who presented to the ED via EMS for symptomatic anemia. She received transfusion of 2 units of packed red blood cells and was admitted under the care of the hospitalist team for observation and continue warranted treatment with respect to her anemia. Patient is seen by the [facility] medicine group and she will be followed by them in the hospital, moving forward. #Symptomatic microcytic hypochromic anemia -Hgb 5.8, MCV 65.4, MCHC 25.1 -Iron panel (serum iron, and ferritin, TIBC, transferrin), reticulocyte studies, and TSH ordered -Blood product. Informed consent obtained and patient received transfusion of 2 units packed red blood cells -Serial H&H's ordered; a.m. CBC ordered -Patient's last known colonoscopy was in June [address] Feliciano that was relatively unremarkable other than nonbleeding internal hemorrhoids. No specimens were collected and repeat colonoscopy in 10 years for screening purposes was recommended. -Patient does take daily 81 mg aspirin #Essential hypertension -Systolic blood pressure in the 160s in the ED -Continue home medications (losartan, hydrochlorothiazide, and carvedilol) -Monitor vitals #Hyperlipidemia -Continue home atorvastatin #History of epilepsy -Continue home primidone #Subclinical hypothyroidism -TSH ordered #DVT prophylaxis: Teds and sequentials ordered DISPOSITION: Anticipate admission stay for 1-2 overnights with respect to improved hemoglobin and overall energy #Morbid Obesity -BMI 57.3: Obesity Class V (Super Obese, BMI 50-60) Attending: I have independently seen and examined the patient and agree with the resident's note. Vital Signs Vital Signs Date Time Temp Pulse Resp B/P (MAP) Pulse Ox O2 Delivery O2 Flow Rate FiO2 09/02/19 18:13 96.4 70 20 179/77 97 Room Air Laboratory Data Labs 24H Laboratory Tests 2 09/02/19 16:20: Immature Granulocyte % (Auto) 0.4, Neutrophils (%) (Auto) 60.6, Lymphocytes (%) (Auto) 17.6L, Monocytes (%) (Auto) 15.5H, Eosinophils (%) (Auto) 5.1H, Basophils (%) (Auto) 0.8, Neutrophils # (Auto) 4.6, Lymphocytes # (Auto) 1.3L, Monocytes # (Auto) 1.2H, Eosinophils # (Auto) 0.4, Basophils # (Auto) 0.1, Nucleated Red Blood Cells % (auto) 0.0, Anion Gap 5L, Glomerular Filtration Rate 52.2, Calcium Level 8.5L, Total Bilirubin 0.2, Aspartate Amino Transf (AST/SGOT) 34, Alanine Aminotransferase (ALT/SGPT) 20, Alkaline Phosphatase 243H, Total Creatine Kinase 119, Creatine Kinase MB 1.8, Creatine Kinase MB Relative Index 1.51, Troponin I < 0.02, Total Protein 7.3, Albumin 3.4, Albumin/Globulin Ratio 0.87L CBC/BMP Laboratory Tests 09/02/19 16:20 Home Medications Scheduled Aspirin (Aspirin EC) 81 Mg Tablet.dr, 81 MG PO DAILY Atorvastatin Calcium (Atorvastatin Calcium) 10 Mg Tab, 40 MG PO QHS Calcium Carb,Gluc/Mag Ox,Gluc (Calcium Magnesium Caplet) 1 Each Tablet, 1 EACH PO DAILY Carvedilol (Carvedilol) 12.5 Mg Tablet, 12.5 MG PO BID Diclofenac Sodium (Diclofenac Sodium) 75 Mg Tab, 75 MG PO DAILY Hydrochlorothiazide (Hydrochlorothiazide) 12.5 Mg Cap, 12.5 MG PO DAILY Iron Ag,Ps/C/Fa6/B12/Zn/SA/Sto (Niferex Tablet) 1 Each Tablet, 1 TAB PO BID Losartan Potassium (Losartan Potassium) 25 Mg Tablet, 25 MG PO DAILY Primidone (Primidone) 250 Mg Tab, 250 MG PO DAILY Primidone (Primidone) 250 Mg Tab, 125 MG PO QHS Scheduled PRN Acetaminophen (Mapap) 500 Mg Tab, 1,000 MG PO Q6H PRN for PAIN Meclizine HCl (Meclizine HCl) 25 Mg Tab, 25 MG PO Q8H PRN for DIZZINESS Allergies Coded Allergies: No Known Allergies (Unverified , 06/17/18) A-FIB/CHADSVASC A-FIB History Current/History of A-Fib/PAF?: No Current PO Anticoag Therapy: No (Nic and sequentials ordered) FLORI RAMOS D.O. Sep 02, 2019 20:04 FACUNDO LENTZ MD Sep 27, 2019 14:23
[2019-09-02] MEDS ORDERED: MECLIZINE 25 MG TABLET PO PRN (20:15)
[2019-09-02 23:29] LABS: HEMATOCRIT 26.9 % (36.0-47.0); HEMOGLOBIN 7.3 g/dl (12.0-15.5)
[2019-09-03] VITALS (8 sets, daily range): BP systolic 109–198; BP diastolic 53–70
[2019-09-03] MEDS: ATORVASTATIN 10 MG TAB PO SCH ×2 (00:03→20:56)
[2019-09-03] MEDS: PRIMIDONE 125MG PER 1/2 TABLET PO SCH ×2 (00:03→20:56)
[2019-09-03] MEDS: CARVedilol 12.5 MG TAB PO SCH ×3 (00:03→20:57)
[2019-09-03 05:13] LABS: HEMATOCRIT 24.5 % (36.0-47.0); MEAN CORPUSCULAR HEMOGLOBIN 18.8 pg (27.0-33.0); MEAN CORPUSCULAR HGB CONC 27.8 g/dl (32.0-36.5); MEAN CORPUSCULAR VOLUME 67.7 fl (80.0-96.0); PLATELET COUNT, AUTOMATED 364 10^3/uL (150-450); RED BLOOD COUNT 3.62 10^6/uL (4.00-5.40)
[2019-09-03 05:26] LABS: HEMOGLOBIN 6.8 g/dl (12.0-15.5)
[2019-09-03 05:39] LABS: BLOOD UREA NITROGEN 21 MG/DL (7-18); CALCIUM LEVEL 8.3 MG/DL (8.8-10.2); CARBON DIOXIDE LEVEL 28 MEQ/L (21-32); CHLORIDE LEVEL 106 MEQ/L (98-107); CREATININE FOR GFR 0.91 MG/DL (0.55-1.30); GLOMERULAR FILTRATION RATE > 60.0 (>45); GLUCOSE, FASTING 87 MG/DL (70-100); POTASSIUM SERUM 3.6 MEQ/L (3.5-5.1); SODIUM LEVEL 139 MEQ/L (136-145)
--- NOTE | 2019-09-03 08:32 | IPNPDOC ---
Subjective Date Seen The patient was seen on 09/03/19. Subjective Chief Complaint/HPI Denies SOB or CP this am Denies heartburn, n/v, abd pain, melena or blood in stool now or prior to admission Constitutional: Denies: Chills, Fever Pulmonary: Denies: Dyspnea, Cough Cardiovascular: Denies: Chest Pain, Palpitations Gastrointestinal: Denies: Nausea, Vomiting, Abdominal Pain, Diarrhea, Constipation Genitourinary: Reports: Other Symptoms (no vaginal bleeding); Denies: Dysuria Objective Physical Examination General Exam: Positive: Alert, No Acute Distress Chest Exam: Positive: Clear to auscultation, Normal air movement; Negative: Rales, Rhonchi, Wheezing Heart Exam: Positive: Regular Rhythm; Negative: Rate Normal Telemetry: Positive: No significant arrhythmia, Sinus Abdomen Exam: Positive: Normal bowel sounds, Soft; Negative: Tenderness Extremity Exam: Negative: Edema Assessment /Plan Problems (1) Symptomatic anemia Status: Acute Response to Treatment: Improving Problem Text: Receiving 3rd unit PRBCs currently - Check CBC in a few hours and transfuse further if needed for goal Hgb >7.5 - 8 or if still with symptoms Etiology of anemia uncertain - no GI symptoms or signs of bleeding Has h/o iron def anemia - given IV Venofer during admission 06/2018. Unable to tolerate oral iron in past due to constipation per notes from 06/2018 admission Check stool for occult blood & Celiac panel Hold ASA Start iron replacement - give stool softeners if needed to prevent constipation Last colonoscopy 2016 showed non-bleeding hemorrhoids (Braden) Will need EGD and repeat colonoscopy as outpatient and further wkup for etiology of iron def anemia (2) Iron deficiency anemia Status: Chronic Problem Text: as above (3) Hypertension Status: Chronic Response to Treatment: Stable (4) Epilepsy Status: Chronic Response to Treatment: Stable Plan/VTE VTE Prophylaxis Ordered?: Yes (TEDS/Sequentials) VTE Exclusion Pharmacological: Other (acute anemia of unknown cause) VS, I&O, 24H, Fishbone Vital Signs/I&O Vital Signs Date Time Temp Pulse Resp B/P (MAP) Pulse Ox O2 Delivery O2 Flow Rate FiO2 09/03/19 06:55 98.6 73 18 132/62 94 Room Air I&O- Last 24 Hours up to 6 AM 09/03/19 06:00 Intake Total 800 ml Output Total 0 ml Balance 800 ml Laboratory Data 24H LABS Laboratory Tests 2 09/02/19 16:20: Immature Granulocyte % (Auto) 0.4, Neutrophils (%) (Auto) 60.6, Lymphocytes (%) (Auto) 17.6L, Monocytes (%) (Auto) 15.5H, Eosinophils (%) (Auto) 5.1H, Basophils (%) (Auto) 0.8, Neutrophils # (Auto) 4.6, Lymphocytes # (Auto) 1.3L, Monocytes # (Auto) 1.2H, Eosinophils # (Auto) 0.4, Basophils # (Auto) 0.1, Nucleated Red Blood Cells % (auto) 0.0, Anion Gap 5L, Glomerular Filtration Rate 52.2, Calcium Level 8.5L, Iron Level 14L, Total Iron Binding Capacity 569H, Transferrin % Saturation 2.5L, Ferritin 7L, Total Bilirubin 0.2, Aspartate Amino Transf (AST/SGOT) 34, Alanine Aminotransferase (ALT/SGPT) 20, Alkaline Phosphatase 243H, Total Creatine Kinase 119, Creatine Kinase MB 1.8, Creatine Kinase MB Relative Index 1.51, Troponin I < 0.02, Total Protein 7.3, Albumin 3.4, Albumin/Globulin Ratio 0.87L, Thyroid Stimulating Hormone (TSH) 3.680 09/03/19 04:58: Nucleated Red Blood Cells % (auto) 0.5H, Anion Gap 5L, Glomerular Filtration Rate > 60.0, Calcium Level 8.3L CBC/BMP Laboratory Tests 09/02/19 16:20 09/02/19 23:24 09/03/19 04:58 ZBIGNIEW SHERMAN PA-C Sep 03, 2019 08:31
[2019-09-03] MEDS: hydroCHLOROthiazide 12.5 MG CAPSULE PO SCH (08:46)
[2019-09-03] MEDS: PRIMIDONE 250 MG TAB PO SCH (08:46)
[2019-09-03] MEDS: LOSARTAN 25 MG TAB PO SCH (08:46)
[2019-09-03] MEDS: IRON POLYSAC (NIFEREX) 150 MG CAP PO SCH ×2 (09:50→20:56)
[2019-09-03] MEDS: ASCORBIC ACID 500 MG TAB PO SCH ×2 (09:50→20:56)
[2019-09-03] MEDS: PANTOPRAZOLE 40MG TAB (PROTONIX) PO SCH (09:50)
[2019-09-03] MEDS ORDERED: SLF 3 ML SYR IV PRN (10:30)
[2019-09-03 11:22] LABS: HEMATOCRIT 28.4 % (36.0-47.0); HEMOGLOBIN 8.2 g/dl (12.0-15.5)
[2019-09-03 11:33] LABS: FOLATE 5.6 NG/ML (>5.4)
[2019-09-03] MEDS: SLF 3 ML SYR IV SCH ×2 (14:13→20:57)
[2019-09-03 19:24] LABS: HEMOGLOBIN 8.1 g/dl (12.0-15.5)
--- NOTE | 2019-09-03 20:22 | ECGEPIP ---
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
[2019-09-04 00:54] LABS: HEMATOCRIT 28.2 % (36.0-47.0); HEMOGLOBIN 7.8 g/dl (12.0-15.5)
[2019-09-04] MEDS: SLF 3 ML SYR IV SCH ×3 (06:39→21:36)
[2019-09-04 06:40] VITALS: BP 168/70
[2019-09-04 07:04] LABS: HEMOGLOBIN 8.1 g/dl (12.0-15.5)
[2019-09-04] MEDS: hydroCHLOROthiazide 12.5 MG CAPSULE PO SCH (08:54)
[2019-09-04] MEDS: PANTOPRAZOLE 40MG TAB (PROTONIX) PO SCH (08:54)
[2019-09-04] MEDS: IRON POLYSAC (NIFEREX) 150 MG CAP PO SCH ×2 (08:54→21:35)
[2019-09-04] MEDS: CARVedilol 12.5 MG TAB PO SCH ×2 (08:55→21:35)
[2019-09-04] MEDS: ASCORBIC ACID 500 MG TAB PO SCH ×2 (08:55→21:35)
[2019-09-04] MEDS: LOSARTAN 25 MG TAB PO SCH (08:55)
[2019-09-04] MEDS: PRIMIDONE 250 MG TAB PO SCH (08:56)
[2019-09-04 14:00] VITALS: BP 158/96
[2019-09-04 16:30] LABS: HEMOGLOBIN 8.7 g/dl (12.0-15.5); MEAN CORPUSCULAR HEMOGLOBIN 19.5 pg (27.0-33.0); MEAN CORPUSCULAR HGB CONC 28.1 g/dl (32.0-36.5); MEAN CORPUSCULAR VOLUME 69.4 fl (80.0-96.0); PLATELET COUNT, AUTOMATED 382 10^3/uL (150-450); RED BLOOD COUNT 4.47 10^6/uL (4.00-5.40); WHITE BLOOD COUNT 11.5 10^3/uL (4.0-10.0)
[2019-09-04 20:51] VITALS: BP 160/82
[2019-09-04] MEDS: PRIMIDONE 125MG PER 1/2 TABLET PO SCH (21:35)
[2019-09-04] MEDS: ATORVASTATIN 10 MG TAB PO SCH (21:35)
[2019-09-05] MEDS: SLF 3 ML SYR IV SCH ×2 (06:00→13:31)
[2019-09-05 06:52] VITALS: BP 146/66
[2019-09-05 07:12] LABS: HEMOGLOBIN 8.2 g/dl (12.0-15.5); MEAN CORPUSCULAR HEMOGLOBIN 19.7 pg (27.0-33.0); MEAN CORPUSCULAR HGB CONC 28.3 g/dl (32.0-36.5); MEAN CORPUSCULAR VOLUME 69.5 fl (80.0-96.0); PLATELET COUNT, AUTOMATED 356 10^3/uL (150-450); RED BLOOD COUNT 4.17 10^6/uL (4.00-5.40); WHITE BLOOD COUNT 9.9 10^3/uL (4.0-10.0)
[2019-09-05] MEDS: IRON POLYSAC (NIFEREX) 150 MG CAP PO SCH ×2 (09:26→21:05)
[2019-09-05] MEDS: PANTOPRAZOLE 40MG TAB (PROTONIX) PO SCH (09:26)
[2019-09-05] MEDS: PRIMIDONE 250 MG TAB PO SCH (09:26)
[2019-09-05] MEDS: ASCORBIC ACID 500 MG TAB PO SCH ×2 (09:27→21:05)
[2019-09-05] MEDS: hydroCHLOROthiazide 12.5 MG CAPSULE PO SCH (09:27)
[2019-09-05] MEDS: CARVedilol 12.5 MG TAB PO SCH ×2 (09:27→21:06)
[2019-09-05] MEDS: LOSARTAN 25 MG TAB PO SCH (09:27)
[2019-09-05 14:00] VITALS: BP 135/108
[2019-09-05 20:00] VITALS: BP 162/88
[2019-09-05] MEDS: ATORVASTATIN 10 MG TAB PO SCH (21:05)
[2019-09-05] MEDS: PRIMIDONE 125MG PER 1/2 TABLET PO SCH (21:05)
[2019-09-05] MEDS: DOCUSATE SODIUM 100 MG CAP PO PRN (21:05)
[2019-09-06] MEDS: DOCUSATE SODIUM 100 MG CAP PO PRN (05:26)
[2019-09-06 05:47] VITALS: BP 160/74
[2019-09-06 07:04] LABS: HEMATOCRIT 30.6 % (36.0-47.0); HEMOGLOBIN 8.5 g/dl (12.0-15.5); MEAN CORPUSCULAR HEMOGLOBIN 19.7 pg (27.0-33.0); MEAN CORPUSCULAR HGB CONC 27.8 g/dl (32.0-36.5); MEAN CORPUSCULAR VOLUME 70.8 fl (80.0-96.0); PLATELET COUNT, AUTOMATED 370 10^3/uL (150-450); RED BLOOD COUNT 4.32 10^6/uL (4.00-5.40); WHITE BLOOD COUNT 10.1 10^3/uL (4.0-10.0)
[2019-09-06] MEDS ORDERED: MOM 30ML SUSPENSION UDC PO PRN (08:30)
[2019-09-06] MEDS ORDERED: BISACODYL 10 MG SUPP PR ONE (08:30)
--- NOTE | 2019-09-06 08:31 | IPNPDOC ---
Subjective Date Seen The patient was seen on 09/06/19. Subjective Chief Complaint/HPI Pt this morning without new concerns, although after I have seen her nursing tells me she hasn't had a BM since admission and she feels as though she needs to. As a result of this no OB has been collected. General: Denies: Fatigue Constitutional: Denies: Chills, Fever Pulmonary: Denies: Dyspnea, Cough Cardiovascular: Denies: Chest Pain, Palpitations Gastrointestinal: Denies: Nausea, Vomiting, Diarrhea Neurological: Denies: Weakness Psych: Reports: Mood Normal Objective Physical Examination General Exam: Positive: Alert, No Acute Distress Chest Exam: Positive: Clear to auscultation, Normal air movement; Negative: Rales, Rhonchi, Wheezing Heart Exam: Positive: Regular Rhythm; Negative: Rate Normal Telemetry: Positive: No significant arrhythmia, Sinus Abdomen Exam: Positive: Normal bowel sounds, Soft; Negative: Tenderness Extremity Exam: Negative: Edema Neuro Exam: Positive: Normal Speech Psych Exam: Positive: Mood NL Assessment /Plan Problems (1) Symptomatic anemia Status: Acute Response to Treatment: Improving Problem Text: 09/06 Rec total 3 units pRBCs, Hgb has been stable for more than 24 hours, she is on Niferex, but has a h/o tolerability issues with PO iron. She has received Venofer in the past. She denies melena, hematochezia, bowel care ordered, will obtain OB. Pt likely needs endoscopy inpt if positive. Nursing will report to me. If Neg, DC and manage as outpt with PCP. 09/03 Receiving 3rd unit PRBCs currently - Check CBC in a few hours and transfuse further if needed for goal Hgb >7.5 - 8 or if still with symptoms Etiology of anemia uncertain - no GI symptoms or signs of bleeding Has h/o iron def anemia - given IV Venofer during admission 06/2018. Unable to tolerate oral iron in past due to constipation per notes from 06/2018 admission Check stool for occult blood & Celiac panel Hold ASA Start iron replacement - give stool softeners if needed to prevent constipation Last colonoscopy 2015 showed non-bleeding hemorrhoids (Braden) Will need EGD and repeat colonoscopy as outpatient and further wkup for etiology of iron def anemia (2) Iron deficiency anemia Status: Chronic Problem Text: as above (3) Hypertension Status: Chronic Response to Treatment: Stable Problem Specific Plan: Monitor Clinically (4) Epilepsy Status: Chronic Response to Treatment: Stable Plan/VTE VTE Prophylaxis Ordered?: Yes (TEDS/Sequentials) VTE Exclusion Pharmacological: Other (acute anemia of unknown cause) VS, I&O, 24H, Fishbone Vital Signs/I&O Vital Signs Date Time Temp Pulse Resp B/P (MAP) Pulse Ox O2 Delivery O2 Flow Rate FiO2 09/06/19 05:47 97.2 74 20 160/74 (102) 92 Room Air I&O- Last 24 Hours up to 6 AM 09/06/19 06:00 Intake Total 1120 ml Balance 1120 ml Laboratory Data 24H LABS Laboratory Tests 2 09/06/19 06:42: Nucleated Red Blood Cells % (auto) 0.0 CBC/BMP Laboratory Tests 09/06/19 06:42 JIN LAINEZ PA-C Sep 06, 2019 08:31
[2019-09-06] MEDS: IRON POLYSAC (NIFEREX) 150 MG CAP PO SCH (08:40)
[2019-09-06 08:44] VITALS: BP 161/66
[2019-09-06] MEDS: LOSARTAN 25 MG TAB PO SCH (08:44)
[2019-09-06] MEDS: CARVedilol 12.5 MG TAB PO SCH (08:45)
[2019-09-06] MEDS: hydroCHLOROthiazide 12.5 MG CAPSULE PO SCH (08:45)
[2019-09-06] MEDS: ASCORBIC ACID 500 MG TAB PO SCH (08:45)
[2019-09-06] MEDS: PANTOPRAZOLE 40MG TAB (PROTONIX) PO SCH (08:45)
[2019-09-06] MEDS: PRIMIDONE 250 MG TAB PO SCH (08:47)
[2019-09-06 09:00] VITALS: BP 161/66
[2019-09-06 10:11] LABS: H PYLORI QUALITATIVE IgG NEGATIVE (NEGATIVE)
[2019-09-06] MEDS ORDERED: NIFE1TAB62 PO (13:15)
--- NOTE | 2019-09-06 17:44 | IPN ---
DATE: 09/05/2019 SUBJECTIVE: The patient feels well. No nausea, vomiting or diarrhea. Appetite is satisfactory. No headaches, no sweats and no cramping. She has not yet had a bowel movement (BM). We need to confirm the absence of active GI bleeding before she can be discharged. Her hemoglobin has proven to be stable since receiving three-unit transfusions for what appears to be iron deficiency anemia. The cause of her iron deficiency anemia is not clear since there is no historical visualization of signs that would indicate gastrointestinal (GI) blood loss. She does have a history of previous anemia. She had a colonoscopy in 2016. Her current medications include diclofenac which could easily cause GI bleeding along with aspirin and therefore I would suspect that she has had upper GI source for her blood loss but no history of gastritis, abdominal pain or nausea. At this point, hemoglobin is stable and we would like to discharge her home for outpatient followup. I feel compelled to confirm absence of GI blood loss as an active process at this time. Therefore, we are awaiting taking a hemoccult sample and she has not had a BM yet, so we offered the opportunity to do a digital rectal examination (EMORY) to confirm that she is negative but she has declined that opportunity, so we will wait for a stool sample. EMORY does not appear to have been done in the emergency department (ED), so we will hopefully be able to discharge today if she produces a stool sample that tests negative for active bleeding and then arrange outpatient followup. PHYSICAL EXAMINATION: She has no tenderness. No distension. She is alert, oriented, pleasant, cooperative. Vital signs continue to show persistent systolic hypertension, in the past 24 hours 168/70 being the highest, 146/66 being the lowest, pulse oximetry ranging 94% to 97% on room air with no fever at 98.4 and a normal heart rate and respiratory rate. LABORATORY DATA: Hemoglobin is back down to 8.2 from a peak of 8.7 yesterday. She was 8.1 yesterday morning. She had received three units packed cells on her first admission day. Helicobacter pylori IgG antibody is pending. She had an IgA antibody that was negative. A panel for celiac disease has tested entirely negative. IMPRESSION: Iron-deficiency anemia in a patient taking aspirin and an anti-inflammatory agent, diclofenac, chronically without proton pump inhibitor (PPI) prophylaxis. It seems likely that her gastrointestinal (GI) blood loss is from upper GI origin, either reflux, gastric or peptic duodenal ulcers. These anti-inflammatory agents have been held. She is on pantoprazole 40 mg daily and iron as well as carvedilol for blood pressure control and atorvastatin for control of hypercholesterolemia and she takes primidone 125 at bedtime along with losartan 25 daily and hydrochlorothiazide (HCTZ) 12.5 daily for hypertension control. PLAN: If she produces a stool sample today that is hemoccult negative then we can confidently discharge her to outpatient followup with at least temporary if not permanent discontinuation of her nonsteroidal anti-inflammatory drug regimen and at least temporary continuation of pantoprazole and iron supplement.
--- NOTE | 2019-09-25 14:54 | DSES ---
DATE OF ADMISSION: 09/02/2019 DATE OF DISCHARGE: 09/06/2019 ATTENDING: Dr. Hauser. HISTORY: A 69-year-old female patient who has a history of some weak spells, diminished strength and lack of energy. She presented to the emergency room and was found to have symptomatic anemia. She was transfused 2 units of packed red blood cells and admitted for further management. During her hospitalization, she received a total of 3 units, with stabilization in her hemoglobin, on day of discharge, this was 8.5. She underwent stool occult blood, which was negative and therefore, the patient was discharged home. She was noted to be iron deficient, having received Venofer infusions in the past. She was started on Niferex twice a day, which she did tolerate. Patient will, in the outpatient setting, need further evaluation and workup. She will need close management and monitoring of her hemoglobin as an outpatient, as well. DISCHARGE DIAGNOSES: Includes: 1. Symptomatic anemia. 2. Iron deficiency anemia. 3. Hypertension. 4. Hyperlipidemia. DISCHARGE MEDICATIONS: Includes: - iron - Niferex one tablet by mouth twice a day - acetaminophen 1000 mg every 6 hours as needed for pain - aspirin 81 mg daily - atorvastatin 40 mg at bedtime - calcium magnesium caplet one tablet daily - carvedilol 12.5 mg by mouth twice a day - diclofenac 75 mg daily - hydrochlorothiazide 12.5 mg daily - losartan 25 mg daily - meclizine 25 mg every 8 hours as needed for dizziness - primidone 250 mg daily and 125 mg by mouth at bedtime She will follow up with her primary care provider (PCP) in one week. Activity should be as tolerated. She should have a complete blood count (CBC) in one week.
== END 2019-09-06 13:39 | disposition home or self-care (01) | DRG 812 ==
LOC: EDBD 15:57 → M ED 15:57 → M ED INP 17:41 → ENRESERVDT 09-03 00:17 → ENRESERVTM 09-03 00:17 → M PCU 09-03 01:25 → M MS4PR 09-03 13:56
PROVIDERS: ADMIT Internal Medicine; ATTEND Family Medicine
PROC: 30233N1 Transfusion of Nonautologous Red Blood Cells into Peripheral Vein, Percutaneous Approach (ICD-10-PCS; principal; 2019-09-02)
DX: D50.9 Iron deficiency anemia, unspecified (principal); Z68.43 Body mass index [BMI] 50.0-59.9, adult; I25.10 Atherosclerotic heart disease of native coronary artery without angina pectoris; I10 Essential (primary) hypertension; G40.909 Epilepsy, unspecified, not intractable, without status epilepticus; E78.5 Hyperlipidemia, unspecified; E66.01 Morbid (severe) obesity due to excess calories; M17.0 Bilateral primary osteoarthritis of knee; E02 Subclinical iodine-deficiency hypothyroidism; Z79.82 Long term (current) use of aspirin; Z79.899 Other long term (current) drug therapy

== ENCOUNTER → 2019-09-02 | Outpatient (REF) | payer MEDICARE, MEDICAID ==
[~2019-09-02] MED LIST changes: +ASPI81TA26 PO; +CALC500T52 PO; +CARV12.5 PO; +LOSA25TA14 PO; +NIFE1TAB62 PO
[2019-09-02 12:46] LABS: HEMATOCRIT 22.7 % (36.0-47.0); MEAN CORPUSCULAR HEMOGLOBIN 16.9 pg (27.0-33.0); MEAN CORPUSCULAR VOLUME 64.9 fl (80.0-96.0); PLATELET COUNT, AUTOMATED 491 10^3/uL (150-450); WHITE BLOOD COUNT 8.8 10^3/uL (4.0-10.0)
[2019-09-02 12:52] LABS: CALCIUM LEVEL 9.1 MG/DL (8.8-10.2); CHOLESTEROL RISK RATIO 1.869 (<5); CREATININE FOR GFR 0.99 MG/DL (0.55-1.30); GLOMERULAR FILTRATION RATE 59.6 (>45); POTASSIUM SERUM 4.9 MEQ/L (3.5-5.1)
[2019-09-02 13:01] LABS: HEMOGLOBIN 5.9 g/dl (12.0-15.5)
== END ==
LOC: M LAB REF 12:25 → M LABDRWAD 12:25
PROVIDERS: ATTEND Physician Assistant
DX: I25.10 Atherosclerotic heart disease of native coronary artery without angina pectoris (principal)

== ENCOUNTER → 2019-09-15 | Outpatient (REF) | payer MEDICARE, MEDICAID ==
[~2019-09-15] MED LIST changes: +ASPI81TA26 PO; +CALC500T52 PO; +CARV12.5 PO; +LOSA25TA14 PO; +NIFE1TAB62 PO
[2019-09-15 14:14] LABS: BASO # 0.1 10^3/uL (0.0-0.2); BASO % 0.8 % (0.0-1.0); EOS # 0.5 10^3/uL (0.0-0.5); EOS % 5.5 % (0.0-3.0); HEMATOCRIT 34.3 % (36.0-47.0); HEMOGLOBIN 9.2 g/dl (12.0-15.5); LYMPH # 1.1 10^3/uL (1.5-5.0); LYMPH % 12.6 % (24.0-44.0); MEAN CORPUSCULAR HEMOGLOBIN 20.5 pg (27.0-33.0); MEAN CORPUSCULAR HGB CONC 26.8 g/dl (32.0-36.5); MEAN CORPUSCULAR VOLUME 76.4 fl (80.0-96.0); MONO # 0.9 10^3/uL (0.0-0.8); MONO % 10.6 % (0.0-5.0); NEUTROPHILS % 69.9 % (36.0-66.0); PLATELET COUNT, AUTOMATED 421 10^3/uL (150-450); RED BLOOD COUNT 4.49 10^6/uL (4.00-5.40); WHITE BLOOD COUNT 8.7 10^3/uL (4.0-10.0)
== END ==
LOC: M SFHCADAM 09:55
PROVIDERS: ATTEND Family Medicine
DX: D50.9 Iron deficiency anemia, unspecified (principal)
CPT/HCPCS: 85025; G0463

== ENCOUNTER → 2019-11-10 | Outpatient (REF) | payer MEDICARE, MEDICAID ==
[2019-11-10 12:48] LABS: HEMATOCRIT 36.8 % (36.0-47.0); HEMOGLOBIN 10.8 g/dl (12.0-15.5); MEAN CORPUSCULAR HEMOGLOBIN 24.5 pg (27.0-33.0); MEAN CORPUSCULAR HGB CONC 29.3 g/dl (32.0-36.5); MEAN CORPUSCULAR VOLUME 83.6 fl (80.0-96.0); PLATELET COUNT, AUTOMATED 321 10^3/uL (150-450); WHITE BLOOD COUNT 9.8 10^3/uL (4.0-10.0)
== END ==
LOC: M SFHCADAM 09:26
PROVIDERS: ATTEND Family Medicine
DX: Z86.2 Personal history of diseases of the blood and blood-forming organs and certain disorders involving the immune mechanism (principal)

== ENCOUNTER → 2020-02-14 | Outpatient (REF) | payer MEDICARE, MEDICAID ==
[~2020-02-14] MED LIST changes: -ASPI81TA85 PO; +ASPI81TA86 PO; +NIFE15CA PO; -NIFE1TAB62 PO
[2020-02-14 17:55] LABS: BASO # 0.1 10^3/uL (0.0-0.2); EOS # 0.4 10^3/uL (0.0-0.5); HEMATOCRIT 40.9 % (36.0-47.0); HEMOGLOBIN 12.6 g/dl (12.0-15.5); LYMPH # 1.4 10^3/uL (1.5-5.0); LYMPH % 21.3 % (24.0-44.0); MEAN CORPUSCULAR HEMOGLOBIN 28.5 pg (27.0-33.0); MEAN CORPUSCULAR HGB CONC 30.8 g/dl (32.0-36.5); MEAN CORPUSCULAR VOLUME 92.5 fl (80.0-96.0); MONO # 0.8 10^3/uL (0.0-0.8); MONO % 11.2 % (0.0-5.0); NEUTROPHILS % 60.2 % (36.0-66.0); PLATELET COUNT, AUTOMATED 326 10^3/uL (150-450); RED BLOOD COUNT 4.42 10^6/uL (4.00-5.40); WHITE BLOOD COUNT 6.7 10^3/uL (4.0-10.0)
== END ==
LOC: M SFHCADAM 13:46
PROVIDERS: ATTEND Family Medicine
DX: D50.9 Iron deficiency anemia, unspecified (principal)
CPT/HCPCS: 85025; G0463

== ENCOUNTER → 2020-03-30 | Outpatient (REF) | payer MEDICARE, MEDICAID ==
[2020-03-30 16:00] LABS: BLOOD UREA NITROGEN 24 MG/DL (7-18); CALCIUM LEVEL 9.6 MG/DL (8.8-10.2); CARBON DIOXIDE LEVEL 32 MEQ/L (21-32); CHLORIDE LEVEL 105 MEQ/L (98-107); CHOLESTEROL LEVEL 149 MG/DL (<200); CHOLESTEROL RISK RATIO 2.069 (<5); CREATININE FOR GFR 0.95 MG/DL (0.55-1.30); GLOMERULAR FILTRATION RATE > 60.0 (>45); GLUCOSE, FASTING 88 MG/DL (70-100); HDL CHOLESTEROL 72 MG/DL (>40); LDL CHOLESTEROL 54 MG/DL (<100); NON-HDL-C 77 MG/DL; POTASSIUM SERUM 4.6 MEQ/L (3.5-5.1); SODIUM LEVEL 141 MEQ/L (136-145); TRIGLYCERIDES LEVEL 114 MG/DL (<150)
== END ==
LOC: M LABDRWAD 09:38
PROVIDERS: ATTEND Family Medicine
DX: Z86.73 Personal history of transient ischemic attack (TIA), and cerebral infarction without residual deficits (principal); E78.00 Pure hypercholesterolemia, unspecified

== ENCOUNTER → 2020-11-07 | Outpatient (REF) | payer MEDICARE, MEDICAID ==
[2020-11-07 13:12] LABS: BASO # 0.1 10^3/uL (0.0-0.2); BASO % 0.6 % (0.0-1.0); EOS # 0.5 10^3/uL (0.0-0.5); EOS % 4.6 % (0.0-3.0); HEMATOCRIT 40.5 % (36.0-47.0); HEMOGLOBIN 12.5 g/dl (12.0-15.5); LYMPH # 1.3 10^3/uL (1.5-5.0); MEAN CORPUSCULAR HEMOGLOBIN 29.1 pg (27.0-33.0); MEAN CORPUSCULAR HGB CONC 30.9 g/dl (32.0-36.5); MEAN CORPUSCULAR VOLUME 94.2 fl (80.0-96.0); MONO % 9.3 % (2.0-8.0); NEUTROPHILS # 7.6 10^3/uL (1.5-8.5); PLATELET COUNT, AUTOMATED 350 10^3/uL (150-450); WHITE BLOOD COUNT 10.4 10^3/uL (4.0-10.0)
[2020-11-07 13:53] LABS: ALBUMIN 3.8 GM/DL (3.2-5.2); ALT/SGPT 16 U/L (12-78); BILIRUBIN,TOTAL 0.3 MG/DL (0.2-1.0); BLOOD UREA NITROGEN 24 MG/DL (7-18); CALCIUM LEVEL 9.6 MG/DL (8.8-10.2); CARBON DIOXIDE LEVEL 31 MEQ/L (21-32); CHLORIDE LEVEL 103 MEQ/L (98-107); CHOLESTEROL LEVEL 153 MG/DL (<200); CHOLESTEROL RISK RATIO 1.888 (<5); CREATININE FOR GFR 0.88 MG/DL (0.55-1.30); GLOMERULAR FILTRATION RATE > 60.0 (>45); GLUCOSE, FASTING 97 MG/DL (70-100); HDL CHOLESTEROL 81 MG/DL (>40); LDL CHOLESTEROL 49 MG/DL (<100); NON-HDL-C 72 MG/DL; POTASSIUM SERUM 4.5 MEQ/L (3.5-5.1); SODIUM LEVEL 140 MEQ/L (136-145); TOTAL PROTEIN 7.3 GM/DL (6.4-8.2); TRIGLYCERIDES LEVEL 117 MG/DL (<150)
== END ==
LOC: M SFHCADAM 09:52
PROVIDERS: ATTEND Family Medicine
DX: Z00.00 Encounter for general adult medical examination without abnormal findings (principal); E78.00 Pure hypercholesterolemia, unspecified

== ENCOUNTER 2022-01-14 09:58 | Emergency (ER) | payer MEDICARE, MEDICAID ==
[~2022-01-14] VITALS: Ht 152.4 cm; Wt 131.4 kg
[~2022-01-14 09:58] MED LIST changes: -DICL25TA PO; +DICL25TA11 PO; +LOSA25TA13 PO; -LOSA25TA14 PO
[2022-01-14] MEDS ORDERED: ROSU20TA5 (10:34)
[2022-01-14] MEDS ORDERED: LOSA50TA28 (10:34)
[2022-01-14 13:03] LABS: BASO # 0.1 10^3/uL (0.0-0.2); BASO % 0.5 % (0.0-1.0); EOS # 0.8 10^3/uL (0.0-0.5); EOS % 8.4 % (0.0-3.0); HEMATOCRIT 35.6 % (36.0-47.0); HEMOGLOBIN 11.2 g/dl (12.0-15.5); LYMPH # 0.9 10^3/uL (1.5-5.0); LYMPH % 10.3 % (24.0-44.0); MEAN CORPUSCULAR HEMOGLOBIN 29.9 pg (27.0-33.0); MEAN CORPUSCULAR HGB CONC 31.5 g/dl (32.0-36.5); MEAN CORPUSCULAR VOLUME 95.2 fl (80.0-96.0); MONO # 0.7 10^3/uL (0.0-0.8); MONO % 7.5 % (2.0-8.0); NEUTROPHILS # 6.6 10^3/uL (1.5-8.5); NEUTROPHILS % 72.9 % (36.0-66.0); PLATELET COUNT, AUTOMATED 340 10^3/uL (150-450); RED BLOOD COUNT 3.74 10^6/uL (4.00-5.40); WHITE BLOOD COUNT 9.1 10^3/uL (4.0-10.0)
[2022-01-14 13:34] LABS: ERYTHROCYTE SEDIMENTATION RATE 49 mm/hr (0-30)
[2022-01-14 13:52] LABS: C REACTIVE PROTEIN QUANTITATIV 2.12 MG/DL (0.00-0.30); CALCIUM LEVEL 8.7 MG/DL (8.8-10.2); GLOMERULAR FILTRATION RATE 58.5 (>45); POTASSIUM SERUM 4.4 MEQ/L (3.5-5.1)
[2022-01-14] MEDS ORDERED: CEPH500C PO ×2 (14:05→14:15)
[2022-01-14 14:39] VITALS: BP 161/78
== END 2022-01-14 14:40 | disposition home or self-care (01) ==
LOC: M ED 09:58 → EDBD 09:58 → M ED 14:40
DX: L03.115 Cellulitis of right lower limb (principal); I10 Essential (primary) hypertension; E78.5 Hyperlipidemia, unspecified; G40.909 Epilepsy, unspecified, not intractable, without status epilepticus; Z79.899 Other long term (current) drug therapy; Z79.82 Long term (current) use of aspirin

== ENCOUNTER → 2022-03-20 | Outpatient (CLI) | payer MEDICAID, OTHER ==
[~2022-03-20] MED LIST changes: +CEPH500C PO; +LOSA50TA28; +ROSU20TA5
== END ==
LOC: M WHC 10:29
PROVIDERS: ATTEND Family Medicine
DX: Z12.31 Encounter for screening mammogram for malignant neoplasm of breast (principal); M81.0 Age-related osteoporosis without current pathological fracture

== ENCOUNTER → 2022-12-24 | Outpatient (REF) | payer MEDICARE ==
[2022-12-24 13:03] LABS: BASO # 0.1 10^3/uL (0.0-0.2); BASO % 0.6 % (0.0-1.0); EOS # 0.3 10^3/uL (0.0-0.5); EOS % 3.3 % (0.0-3.0); HEMATOCRIT 38.7 % (36.0-47.0); HEMOGLOBIN 11.7 g/dl (12.0-15.5); LYMPH # 1.1 10^3/uL (1.5-5.0); MEAN CORPUSCULAR HEMOGLOBIN 28.8 pg (27.0-33.0); MEAN CORPUSCULAR HGB CONC 30.2 g/dl (32.0-36.5); MEAN CORPUSCULAR VOLUME 95.3 fl (80.0-96.0); MONO # 0.8 10^3/uL (0.0-0.8); MONO % 9.5 % (2.0-8.0); NEUTROPHILS # 6.4 10^3/uL (1.5-8.5); NEUTROPHILS % 73.3 % (36.0-66.0); PLATELET COUNT, AUTOMATED 324 10^3/uL (150-450); RED BLOOD COUNT 4.06 10^6/uL (4.00-5.40); WHITE BLOOD COUNT 8.7 10^3/uL (4.0-10.0)
[2022-12-24 13:23] LABS: ALBUMIN 3.8 G/DL (3.2-5.2); ALKALINE PHOSPHATASE 139 U/L (46-116); ALT/SGPT 17 U/L (7.0-40); AST/SGOT 22 U/L (<34); BILIRUBIN,TOTAL 0.3 MG/DL (0.3-1.2); BLOOD UREA NITROGEN 24 MG/DL (9-23); CALCIUM LEVEL 9.1 MG/DL (8.3-10.6); CARBON DIOXIDE LEVEL 31 MMOL/L (20-31); CHLORIDE LEVEL 101 MMOL/L (98-107); CHOLESTEROL LEVEL 141 MG/DL (<200); CHOLESTEROL RISK RATIO 2.26 (<5); CREATININE FOR GFR 0.83 MG/DL (0.55-1.30); GLOMERULAR FILTRATION RATE > 60.0 (>39); GLUCOSE, FASTING 97 MG/DL (74-106); HDL CHOLESTEROL 62.3 MG/DL (>40); LDL CHOLESTEROL 54.1 MG/DL (<100); NON-HDL-C 78.7 MG/DL; POTASSIUM SERUM 4.8 MMOL/L (3.5-5.1); SODIUM LEVEL 140 MMOL/L (136-145); TOTAL PROTEIN 6.8 G/DL (5.7-8.2); TRIGLYCERIDES LEVEL 123 MG/DL (<150)
[2022-12-24 13:25] LABS: THYROID STIMULATING HORMONE 7.198 uIU/ML (0.55-4.78)
== END ==
LOC: M SFHCADAM 09:27
PROVIDERS: ATTEND Family Medicine
DX: Z00.00 Encounter for general adult medical examination without abnormal findings (principal); E78.00 Pure hypercholesterolemia, unspecified

== ENCOUNTER 2024-09-16 12:27 | Inpatient (IN) | payer MEDICARE, MEDICAID ==
[~2024-09-16] VITALS: Ht 157.5 cm; Wt 136.0 kg
[~2024-09-16 12:27] MED LIST changes: -COZA1TAB PO; +LOSA-527 PO; -LOSA50TA28; +LOSA50TA28 PO; +MECL-209 PO; -MECL1TAB31 PO; -ROSU20TA5; +ROSU20TA86 PO
[2024-09-16 18:08] LABS: BASO # 0.1 10^3/uL (0.0-0.2); BASO % 0.3 % (0.0-1.0); EOS # 0.3 10^3/uL (0.0-0.5); EOS % 1.7 % (0.0-3.0); HEMATOCRIT 39.4 % (36.0-47.0); HEMOGLOBIN 12.9 g/dl (12.0-15.5); LYMPH # 1.2 10^3/uL (1.5-5.0); LYMPH % 7.7 % (24.0-44.0); MEAN CORPUSCULAR HEMOGLOBIN 30.2 pg (27.0-33.0); MEAN CORPUSCULAR HGB CONC 32.7 g/dl (32.0-36.5); MEAN CORPUSCULAR VOLUME 92.3 fl (80.0-96.0); MONO # 1.4 10^3/uL (0.0-0.8); MONO % 9.4 % (2.0-8.0); NEUTROPHILS # 12.3 10^3/uL (1.5-8.5); NEUTROPHILS % 80.4 % (36.0-66.0); PLATELET COUNT, AUTOMATED 437 10^3/uL (150-450); RED BLOOD COUNT 4.27 10^6/uL (4.00-5.40); WHITE BLOOD COUNT 15.3 10^3/uL (4.0-10.0)
[2024-09-16 18:13] LABS: ERYTHROCYTE SEDIMENTATION RATE 80 mm/hr (0-30)
[2024-09-16 18:30] LABS: BLOOD UREA NITROGEN 25 MG/DL (9-23); C REACTIVE PROTEIN QUANTITATIV 12.87 MG/DL (<1.0); CALCIUM LEVEL 9.1 MG/DL (8.3-10.6); CARBON DIOXIDE LEVEL 31 MMOL/L (20-31); CHLORIDE LEVEL 98 MMOL/L (98-107); GLOMERULAR FILTRATION RATE > 60.0 (>39); GLUCOSE, FASTING 116 MG/DL (74-106); POTASSIUM SERUM 3.8 MMOL/L (3.5-5.1); SODIUM LEVEL 141 MMOL/L (136-145)
[2024-09-16 18:48] LABS: HEMOGLOBIN A1c 5.7 % (4.0-6.0)
[2024-09-16] MEDS ORDERED: VANCOMYCIN HCL 2,000 MG in IV FLUID PLACE HOLDER 1 EA IV ONE (19:00)
[2024-09-16] MEDS: VANCOMYCIN HCL 2,000 MG, VIAL MATE ADAPTER 1 EACH in NS 500 ML IV ONE (19:30)
[2024-09-16] MEDS ORDERED: MAALOX 30 ML SUSP *UDC PO PRN (20:00)
[2024-09-16] MEDS ORDERED: VANCOMYCIN HCL 1,000 MG, VIAL MATE ADAPTER 1 EACH in NS 250 ML IV SCH (20:00)
[2024-09-16] MEDS ORDERED: VANICREAM MOISTURIZING SKIN CREAM 113GM TUBE TOP PRN (20:00)
[2024-09-16] MEDS ORDERED: MOM 30ML SUSPENSION UDC PO PRN (20:00)
[2024-09-16] MEDS ORDERED: NIFE15CA PO (20:42)
[2024-09-16] MEDS ORDERED: ACET650T61 PO (20:42)
[2024-09-16] MEDS ORDERED: CVSTAB PO (20:43)
[2024-09-16] MEDS ORDERED: OMEGCAP4 PO (20:43)
[2024-09-16] MEDS ORDERED: HOME MED LIST COMPLETE! XX SCH (20:45)
[2024-09-16] MEDS: DOCUSATE SODIUM 100MG CAPSULE PO SCH (21:00)
[2024-09-16] MEDS: CLOTRIMAZOLE 1% TOPICAL CREAM 30GM EXT SCH (21:00)
[2024-09-16 22:40] VITALS: BP 154/70; TEMP 97.3; O2SAT 95
[2024-09-17 04:00] VITALS: BP 104/68; TEMP 97.3; O2SAT 97
[2024-09-17] MEDS ORDERED: PILL CUTTER 1 EACH XX PRN (06:20)
[2024-09-17 06:55] LABS: HEMATOCRIT 37.8 % (36.0-47.0); HEMOGLOBIN 12.2 g/dl (12.0-15.5); MEAN CORPUSCULAR HEMOGLOBIN 29.7 pg (27.0-33.0); MEAN CORPUSCULAR HGB CONC 32.3 g/dl (32.0-36.5); PLATELET COUNT, AUTOMATED 377 10^3/uL (150-450); RED BLOOD COUNT 4.11 10^6/uL (4.00-5.40); WHITE BLOOD COUNT 14.5 10^3/uL (4.0-10.0)
[2024-09-17 07:04] LABS: BLOOD UREA NITROGEN 25 MG/DL (9-23); CALCIUM LEVEL 8.7 MG/DL (8.3-10.6); CARBON DIOXIDE LEVEL 32 MMOL/L (20-31); CHLORIDE LEVEL 101 MMOL/L (98-107); CREATININE FOR GFR 0.94 MG/DL (0.55-1.30); GLOMERULAR FILTRATION RATE > 60.0 (>39); GLUCOSE, FASTING 92 MG/DL (74-106); POTASSIUM SERUM 3.9 MMOL/L (3.5-5.1); SODIUM LEVEL 142 MMOL/L (136-145)
[2024-09-17 07:19] LABS: PROCALCITONIN 0.16 ng/ml
[2024-09-17] MEDS ORDERED: VANCOMYCIN HCL 1,250 MG, VIAL MATE ADAPTER 1 EACH in NS 250 ML IV SCH (08:00)
[2024-09-17 08:30] VITALS: BP 98/60
[2024-09-17] MEDS: OMEGA-3 1000MG CAPSULE PO SCH (08:47)
[2024-09-17] MEDS: ENOXAPARIN 40MG/0.4ML SYRINGE (J1650 PER 10MG) SC SCH (08:47)
[2024-09-17] MEDS: ASPIRIN 81MG ENTERIC TABLET PO SCH (08:47)
[2024-09-17] MEDS: hydroCHLOROthiazide 12.5 MG CAPSULE PO SCH (09:00)
[2024-09-17] MEDS: LOSARTAN 50MG TABLET PO SCH (09:00)
[2024-09-17] MEDS: PRIMIDONE 250 MG TAB PO SCH ×2 (09:59→20:20)
[2024-09-17] MEDS: CARVedilol 12.5 MG TAB PO SCH (10:00)
[2024-09-17 12:00] VITALS: BP 127/54; TEMP 97.7; O2SAT 97
[2024-09-17] MEDS ORDERED: cefTRIAXone SOD 1 GM in DEXTROSE 5% (D5W) ADV/MINI-BAG 50 ML IV SCH (12:00)
[2024-09-17] MEDS: cefTRIAXone SOD 1 GM in DEXTROSE 5% (D5W) ADV/MINI-BAG 50 ML IV SCH (12:48)
[2024-09-17] MEDS: VANCOMYCIN HCL 1,250 MG, VIAL MATE ADAPTER 1 EACH in NS 250 ML IV SCH (13:34)
[2024-09-17] MEDS: LACTOBACILLUS ACIDOPHILUS CAP (BACID) PO SCH (17:20)
[2024-09-17] MEDS ORDERED: PROHANCE 279.3MG/ML 5ML VIAL As Ordered ONE (18:06)
[2024-09-17] MEDS ORDERED: PROHANCE 279.3MG/ML 15ML VIAL As Ordered ONE (18:07)
[2024-09-17 20:07] VITALS: BP 118/51; TEMP 97.3; O2SAT 96
[2024-09-17] MEDS: ROSUVASTATIN 10 MG TAB (CRESTOR) PO SCH (20:20)
[2024-09-18 04:00] VITALS: BP 155/66; TEMP 97; O2SAT 93
[2024-09-18 06:22] LABS: BASO % 0.3 % (0.0-1.0); EOS # 0.4 10^3/uL (0.0-0.5); HEMOGLOBIN 10.9 g/dl (12.0-15.5); LYMPH # 0.7 10^3/uL (1.5-5.0); LYMPH % 5.8 % (24.0-44.0); MEAN CORPUSCULAR HEMOGLOBIN 29.1 pg (27.0-33.0); MEAN CORPUSCULAR HGB CONC 31.1 g/dl (32.0-36.5); MEAN CORPUSCULAR VOLUME 93.6 fl (80.0-96.0); MONO # 0.9 10^3/uL (0.0-0.8); MONO % 7.4 % (2.0-8.0); NEUTROPHILS # 10.1 10^3/uL (1.5-8.5); NEUTROPHILS % 83.2 % (36.0-66.0); PLATELET COUNT, AUTOMATED 351 10^3/uL (150-450); RED BLOOD COUNT 3.74 10^6/uL (4.00-5.40); WHITE BLOOD COUNT 12.1 10^3/uL (4.0-10.0)
[2024-09-18 06:46] LABS: C REACTIVE PROTEIN QUANTITATIV 12.93 MG/DL (<1.0)
[2024-09-18 06:47] LABS: ALBUMIN 2.3 G/DL (3.2-5.2); ALKALINE PHOSPHATASE 84 U/L (35-104); ALT/SGPT 13 U/L (7.0-40); AST/SGOT 16 U/L (<34); BILIRUBIN,TOTAL 0.2 MG/DL (0.3-1.2); BLOOD UREA NITROGEN 25 MG/DL (9-23); CARBON DIOXIDE LEVEL 29 MMOL/L (20-31); CHLORIDE LEVEL 104 MMOL/L (98-107); CREATININE FOR GFR 0.72 MG/DL (0.55-1.30); GLOMERULAR FILTRATION RATE > 60.0 (>39); GLUCOSE, FASTING 107 MG/DL (74-106); POTASSIUM SERUM 3.4 MMOL/L (3.5-5.1); SODIUM LEVEL 143 MMOL/L (136-145); TOTAL PROTEIN 5.5 G/DL (5.7-8.2)
[2024-09-18] MEDS: POTASSIUM CHLORIDE 10MEQ SR TABLET PO ONE (09:07)
[2024-09-18] MEDS: PANTOPRAZOLE 40MG TAB (PROTONIX) PO SCH (09:09)
[2024-09-18 12:16] VITALS: BP 120/54; TEMP 97.2; O2SAT 93
[2024-09-18 20:08] VITALS: BP 166/74; TEMP 97.5; O2SAT 97
[2024-09-19 04:08] VITALS: BP 120/76; TEMP 97; O2SAT 96
[2024-09-19 07:00] LABS: BASO % 0.4 % (0.0-1.0); EOS # 0.4 10^3/uL (0.0-0.5); EOS % 4.3 % (0.0-3.0); HEMATOCRIT 34.6 % (36.0-47.0); HEMOGLOBIN 10.7 g/dl (12.0-15.5); LYMPH % 11.1 % (24.0-44.0); MEAN CORPUSCULAR HEMOGLOBIN 29.2 pg (27.0-33.0); MEAN CORPUSCULAR HGB CONC 30.9 g/dl (32.0-36.5); MEAN CORPUSCULAR VOLUME 94.3 fl (80.0-96.0); MONO # 0.9 10^3/uL (0.0-0.8); MONO % 9.7 % (2.0-8.0); NEUTROPHILS # 6.9 10^3/uL (1.5-8.5); NEUTROPHILS % 74.2 % (36.0-66.0); PLATELET COUNT, AUTOMATED 364 10^3/uL (150-450); RED BLOOD COUNT 3.67 10^6/uL (4.00-5.40); WHITE BLOOD COUNT 9.3 10^3/uL (4.0-10.0)
[2024-09-19 07:24] LABS: BLOOD UREA NITROGEN 22 MG/DL (9-23); CALCIUM LEVEL 8.4 MG/DL (8.3-10.6); CARBON DIOXIDE LEVEL 32 MMOL/L (20-31); CHLORIDE LEVEL 105 MMOL/L (98-107); CREATININE FOR GFR 0.81 MG/DL (0.55-1.30); GLOMERULAR FILTRATION RATE > 60.0 (>39); GLUCOSE, FASTING 97 MG/DL (74-106); POTASSIUM SERUM 3.8 MMOL/L (3.5-5.1); SODIUM LEVEL 146 MMOL/L (136-145)
[2024-09-19] MEDS: AUGMENTIN 875 MG TAB PO SCH (09:10)
[2024-09-19] MEDS: DOXYCYCLINE HYCLATE 100MG TABLET PO SCH (09:10)
[2024-09-19 12:15] VITALS: BP 138/59; TEMP 97.2; O2SAT 96
[2024-09-19] MEDS: ACETAMINOPHEN 325 MG TAB PO PRN (16:31)
[2024-09-19 20:43] VITALS: BP 148/67; TEMP 97.3
[2024-09-19 20:56] VITALS: O2SAT 95
[2024-09-20 04:47] VITALS: BP 152/72; TEMP 97.3; O2SAT 95
[2024-09-20 06:36] LABS: BASO # 0.1 10^3/uL (0.0-0.2); BASO % 0.5 % (0.0-1.0); EOS # 0.4 10^3/uL (0.0-0.5); EOS % 4.2 % (0.0-3.0); HEMATOCRIT 34.3 % (36.0-47.0); HEMOGLOBIN 10.8 g/dl (12.0-15.5); LYMPH % 10.5 % (24.0-44.0); MEAN CORPUSCULAR HGB CONC 31.5 g/dl (32.0-36.5); MEAN CORPUSCULAR VOLUME 92.2 fl (80.0-96.0); MONO # 0.9 10^3/uL (0.0-0.8); MONO % 9.7 % (2.0-8.0); NEUTROPHILS # 7.1 10^3/uL (1.5-8.5); NEUTROPHILS % 74.6 % (36.0-66.0); PLATELET COUNT, AUTOMATED 386 10^3/uL (150-450); RED BLOOD COUNT 3.72 10^6/uL (4.00-5.40); WHITE BLOOD COUNT 9.5 10^3/uL (4.0-10.0)
[2024-09-20 07:00] LABS: BLOOD UREA NITROGEN 26 MG/DL (9-23); CALCIUM LEVEL 8.6 MG/DL (8.3-10.6); CARBON DIOXIDE LEVEL 29 MMOL/L (20-31); CHLORIDE LEVEL 103 MMOL/L (98-107); CREATININE FOR GFR 0.85 MG/DL (0.55-1.30); GLOMERULAR FILTRATION RATE > 60.0 (>39); GLUCOSE, FASTING 97 MG/DL (74-106); MAGNESIUM LEVEL 1.9 MG/DL (1.8-2.4); POTASSIUM SERUM 4.1 MMOL/L (3.5-5.1); SODIUM LEVEL 141 MMOL/L (136-145)
[2024-09-20 10:56] VITALS: BP 154/84; TEMP 97.9; O2SAT 91
[2024-09-20] MEDS: NYSTATIN 100,000 UNITS/GM TOPICAL PWD 15GM TOP SCH (12:06)
[2024-09-20 19:50] VITALS: BP 151/69; TEMP 97.5; O2SAT 95
[2024-09-20 21:00] VITALS: O2SAT 95
[2024-09-21 04:18] VITALS: BP 130/57; TEMP 97.7; O2SAT 96
[2024-09-21 07:37] LABS: BASO % 0.3 % (0.0-1.0); EOS # 0.4 10^3/uL (0.0-0.5); EOS % 4.5 % (0.0-3.0); HEMATOCRIT 34.6 % (36.0-47.0); HEMOGLOBIN 10.8 g/dl (12.0-15.5); LYMPH # 1.1 10^3/uL (1.5-5.0); LYMPH % 12.4 % (24.0-44.0); MEAN CORPUSCULAR HEMOGLOBIN 28.6 pg (27.0-33.0); MEAN CORPUSCULAR HGB CONC 31.2 g/dl (32.0-36.5); MEAN CORPUSCULAR VOLUME 91.8 fl (80.0-96.0); MONO # 0.9 10^3/uL (0.0-0.8); MONO % 10.7 % (2.0-8.0); NEUTROPHILS # 6.2 10^3/uL (1.5-8.5); NEUTROPHILS % 71.6 % (36.0-66.0); PLATELET COUNT, AUTOMATED 370 10^3/uL (150-450); RED BLOOD COUNT 3.77 10^6/uL (4.00-5.40); WHITE BLOOD COUNT 8.7 10^3/uL (4.0-10.0)
[2024-09-21 08:13] LABS: BLOOD UREA NITROGEN 30 MG/DL (9-23); CALCIUM LEVEL 8.8 MG/DL (8.3-10.6); CARBON DIOXIDE LEVEL 30 MMOL/L (20-31); CHLORIDE LEVEL 104 MMOL/L (98-107); GLOMERULAR FILTRATION RATE > 60.0 (>39); GLUCOSE, FASTING 92 MG/DL (74-106); MAGNESIUM LEVEL 1.8 MG/DL (1.8-2.4); SODIUM LEVEL 142 MMOL/L (136-145)
[2024-09-22 04:08] VITALS: BP 151/69; TEMP 97.9; O2SAT 95
[2024-09-22 06:20] LABS: BASO # 0.1 10^3/uL (0.0-0.2); BASO % 0.4 % (0.0-1.0); EOS # 0.4 10^3/uL (0.0-0.5); EOS % 3.7 % (0.0-3.0); HEMATOCRIT 32.6 % (36.0-47.0); HEMOGLOBIN 10.5 g/dl (12.0-15.5); LYMPH # 1.2 10^3/uL (1.5-5.0); LYMPH % 10.6 % (24.0-44.0); MEAN CORPUSCULAR HEMOGLOBIN 29.3 pg (27.0-33.0); MEAN CORPUSCULAR HGB CONC 32.2 g/dl (32.0-36.5); MEAN CORPUSCULAR VOLUME 91.1 fl (80.0-96.0); MONO # 1.2 10^3/uL (0.0-0.8); MONO % 10.8 % (2.0-8.0); NEUTROPHILS # 8.4 10^3/uL (1.5-8.5); PLATELET COUNT, AUTOMATED 374 10^3/uL (150-450); RED BLOOD COUNT 3.58 10^6/uL (4.00-5.40); WHITE BLOOD COUNT 11.3 10^3/uL (4.0-10.0)
[2024-09-22 06:51] LABS: BLOOD UREA NITROGEN 35 MG/DL (9-23); CALCIUM LEVEL 8.6 MG/DL (8.3-10.6); CARBON DIOXIDE LEVEL 29 MMOL/L (20-31); CHLORIDE LEVEL 100 MMOL/L (98-107); CREATININE FOR GFR 0.78 MG/DL (0.55-1.30); GLOMERULAR FILTRATION RATE > 60.0 (>39); GLUCOSE, FASTING 92 MG/DL (74-106); MAGNESIUM LEVEL 1.8 MG/DL (1.8-2.4); POTASSIUM SERUM 3.8 MMOL/L (3.5-5.1); SODIUM LEVEL 140 MMOL/L (136-145)
[2024-09-22 20:00] VITALS: BP 115/49; TEMP 97.9; O2SAT 96
[2024-09-23 05:05] VITALS: BP 156/63; TEMP 97.3; O2SAT 94
[2024-09-24 04:00] VITALS: BP 149/61; TEMP 97.5; O2SAT 98
[2024-09-24 08:31] VITALS: BP 160/70
[2024-09-24 09:00] VITALS: BP 160/70; TEMP 98.7
[2024-09-24] MEDS ORDERED: AMOX875T2 PO (12:57)
[2024-09-24] MEDS ORDERED: DOXY100T PO (12:57)
== END 2024-09-24 13:50 | DRG 572 ==
LOC: M ED 12:27 → EDBD 12:27 → M ED INP 12:28 → M MS5PR 22:20 → OBSVTOIN 09-17 17:28
PROVIDERS: ADMIT Student in an Organized Health Care Education/Training Program; ATTEND Internal Medicine
PROC: 0JBQ0ZZ Excision of Right Foot Subcutaneous Tissue and Fascia, Open Approach (ICD-10-PCS; principal; 2024-09-17)
DX: L03.115 Cellulitis of right lower limb (principal); I10 Essential (primary) hypertension; E78.5 Hyperlipidemia, unspecified; G40.909 Epilepsy, unspecified, not intractable, without status epilepticus; E03.9 Hypothyroidism, unspecified; M17.0 Bilateral primary osteoarthritis of knee; I87.2 Venous insufficiency (chronic) (peripheral); D50.9 Iron deficiency anemia, unspecified; B96.20 Unspecified Escherichia coli [E. coli] as the cause of diseases classified elsewhere; I70.203 Unspecified atherosclerosis of native arteries of extremities, bilateral legs; Z79.82 Long term (current) use of aspirin; Z79.899 Other long term (current) drug therapy